=== PATIENT | female | born 1930 | race Caucasian/White ===

== ENCOUNTER 2017-03-05 05:58 | Emergency (ER) | payer OTHER ==
[~2017-03-05] VITALS: Ht 157.5 cm; Wt 70.0 kg
[~2017-03-05 05:58] MED LIST: ALBU1AER INH; AMLO5TAB96 PO; CLOP75 PO; COZA50TA PO; GALA12TA6 PO; IMOD2CHW PO; LEVO.05 PO; LISI-363 PO; MEVA40TA PO; NAME10TA PO; OSEL75 PO; PERI8.6T PO; PROM25TA5 PO; RISP0.252 PO; VITA200017 PO; VITA500S3 PO
[2017-03-05 06:01] VITALS: BP 141/70; PULSE 82; RESP 18; TEMP 98.5; O2SAT 97
[2017-03-05] MEDS ORDERED: ALBUAER3 INH (06:30)
[2017-03-05] MEDS ORDERED: LOPE2TAB3 PO (06:30)
[2017-03-05] MEDS ORDERED: AMLO5TAB2 PO (06:30)
[2017-03-05] MEDS ORDERED: LOVA40TA PO (06:30)
[2017-03-05] MEDS ORDERED: LEVO50TA4 PO (06:30)
[2017-03-05] MEDS ORDERED: RISP0.252 PO (06:30)
[2017-03-05] MEDS ORDERED: VITA10002 PO (06:30)
[2017-03-05] MEDS ORDERED: PLAV75TA29 PO (06:30)
[2017-03-05] MEDS ORDERED: PROM12.54 PO (06:30)
[2017-03-05] MEDS ORDERED: CIPR250T52 PO (06:30)
[2017-03-05] MEDS ORDERED: GALA4TAB PO (06:30)
[2017-03-05] MEDS ORDERED: TYLE325T PO (06:30)
[2017-03-05] MEDS ORDERED: LISI-515 PO (06:30)
[2017-03-05] MEDS ORDERED: PERI8.6T PO (06:30)
[2017-03-05] MEDS ORDERED: CHOL1CHW5 CHEW (06:30)
[2017-03-05] MEDS ORDERED: NAME10TA PO (06:30)
--- NOTE | 2017-03-05 07:03 | PD ---
HPI Chief Complaint: Fall Time Seen by Provider: 06:16 Travel History International Travel<30 days: No Contact w/Intl Traveler<30days: No Traveled to known affect area: No History of Present Illness HPI The patient is an 86 year old female who presents to the [facility] emergency department with a history of reportedly falling prior to arrival at her assisted living facility. The patient reports that she fell forward onto her anterior right knee. The patient reports having right knee pain. She denies having any other pain associated with the fall. She denies hitting her head or losing consciousness. However, according to the record the patient does have a history of dementia. The patient arrives awake and alert. The patient is oriented to person, place, situation, however not time. She denies having any other extremity pain. She denies having chest pain, chest pressure, shortness of breath. She denies having any neck pain, paresthesias, or weakness to her extremities. PFSH Past Medical History Narrative Medical The patient's past medical history is significant for coronary artery disease status post cardiac infarction in 2007, hyperlipidemia, hypertension, spastic colon, acid reflux, arthritis, history of dementia Hx Anticoagulant Therapy: Yes Alzheimer's Disease: Yes Arthritis: Yes Blood Disorders: No Heart Rhythm Problems: No Cancer: Yes (HYSTERECTOMY) Cardiovascular Problems: Yes (HTN) High Cholesterol: Yes Chemotherapy: No Chest Pain: Yes Congestive Heart Failure: No Diabetes: No Diminished Hearing: No Endocrine: No Gastrointestinal Disorders: Yes (SPASTIC COLON) GERD: Yes Genitourinary: No Headaches: Yes Hypertension: Yes Immune Disorder: No Musculoskeletal: No Neurologic: No Psychiatric: No Reproductive: Yes Respiratory: No Immunizations Current: Yes Myocardial Infarction: Yes (2007) Radiation Therapy: No Thyroid Disease: No Tetanus Vaccination: Unknown Influenza Vaccination: No Past Surgical History Narrative Surgical The patient has a past surgical history significant for hysterectomy, cholecystectomy Cholecystectomy: Yes Hysterectomy: Yes Thoracic Surgery: Yes (2 LB TUMOR REMOVED FROM UNDER RIGHT BREAST TO UP AROUND SHOULDER) Other Surgery: Yes Social History Alcohol Use: No Tobacco Use: No Substance Use: No Allergies-Medications (Allergen,Severity, Reaction): Coded Allergies: Lactose (Verified Allergy, Severe, Diarrhea, 03/05/17) Penicillin (Verified Allergy, Severe, UNKNOWN, 03/05/17) Sulfa (Verified Allergy, Severe, UNKNOWN, 03/05/17) Tetanus Toxoid (Verified Allergy, Severe, Rash, 03/05/17) Reported Meds & Prescriptions Reported Meds & Active Scripts Active Reported Vitamin D3 (Cholecalciferol) 2,000 Unit Chew 2,000 Units CHEW DAILY Vitamin B-12 (Cyanocobalamin) 1,000 Mcg Tab 1,000 Mcg PO DAILY Risperidone 0.25 Mg Tab 0.25 Mg PO DAILY Promethazine (Promethazine HCl) 12.5 Mg Tab 25 Mg PO Q6H PRN Proair Hfa 8.5 GM Inh (Albuterol Sulfate) 90 Mcg/Act Aer 2 Puff INH Q4-6H PRN 108 mcg/actuation Plavix (Clopidogrel Bisulfate) 75 Mg Tab 75 Mg PO DAILY Trudi-Colace (Sennosides-Docusate Sodium) 8.6-50 Mg Tab 1 Tab PO BID Namenda (Memantine) 10 Mg Tab 10 Mg PO DAILY Lovastatin 40 Mg Tab 40 Mg PO DAILY Loperamide (Loperamide HCl) 2 Mg Tab 2 Mg PO DIRECTED PRN One tablet after each loose stool. Not to exceed 8 tablets per day. Lisinopril 20 Mg Tab 20 Mg PO DAILY Levothyroxine (Levothyroxine Sodium) 50 Mcg Tab 50 Mcg PO DAILY Galantamine (Galantamine Hydrobromide) 4 Mg Tab 4 Mg PO ONCE Cipro (Ciprofloxacin HCl) 250 Mg Tab 250 Mg PO QID Amlodipine (Amlodipine Besylate) 5 Mg Tab 5 Mg PO DAILY Tylenol (Acetaminophen) 325 Mg Tab 325 Mg PO Q6H PRN Review of Systems Except as stated in HPI: all other systems reviewed are Neg General / Constitutional: No: Fever Eyes: No: Visual changes HENT: No: Headaches Cardiovascular: No: Chest Pain or Discomfort Respiratory: No: Shortness of Breath Gastrointestinal: No: Abdominal Pain Genitourinary: No: Dysuria Musculoskeletal: Positive: Myalgias, Arthralgias, Pain Skin: No Rash Neurologic: No: Weakness, Focal Abnormalities, Coordination Problem, Change in Mentation, Slurred Speech, Sensory Disturbance Psychiatric: No: Depression Endocrine: No: Polydipsia Hematologic/Lymphatic: No: Easy Bruising Physical Exam Narrative General: The patient is a well-developed well-nourished female in no acute distress. She is smiling and interactive. Head and Neck exam: Head is normocephalic atraumatic. No palpable scalp hematoma. No tenderness on palpation of her scalp. Eyes: EOMI, pupils are equal round and reactive to light. Nose: Midline septum with pink mucous membranes Mouth: Dentition unremarkable. Moist mucus membranes. Posterior oropharynx is not erythematous. No tonsillar hypertrophy. Uvula midline. Airway patent. Neck: No palpable lymphadenopathy. No nuchal rigidity. No thyromegaly. No spinous process tenderness on palpation, no step-off or crepitus, no erythema or ecchymosis. The patient has no pain with active range of motion of her neck in flexion and extension and torsion. Cardiovascular: Regular rate and rhythm without murmurs, gallops, or rubs. Lungs: Clear to auscultation bilaterally. No wheezes, rhonchi, or rales. Abdomen: Soft, without tenderness to palpation in all 4 quadrants of the abdomen. No guarding, rebound, or rigidity. Normal bowel sounds are audible. Extremities: No pelvic instability on pelvic rock. No pelvic tenderness on palpation. No clubbing, cyanosis, or edema. 2+ pulses in all 4 extremities. The area of interest is her right knee. The patient reports some tenderness on palpation anteriorly with some erythema and ecchymosis developing. There is a small amount of swelling noted. There is no ligament laxity. The patient has full range of motion with flexion and extension. The patient has no pain with internal and external rotation of the right hip. The patient has 2+ pulses and less than 3 second capillary refill of the digits of the right foot. The patient has intact sensation over all toes. Back: No spinous process tenderness to palpation. No costovertebral angle tenderness to palpation. Neurologic Exam: Cranial nerves 2-12 were intact on exam. Strength is 5/5 in all 4 extremities. No sensory deficits noted. The patient is oriented to person, place, situation , however not time. Data Data Last Documented VS Vital Signs Date Time Temp Pulse Resp B/P Pulse Ox O2 Delivery O2 Flow Rate FiO2 03/05/17 06:01 98.5 82 18 141/70 97 Orders Hip, Uni(Ap&Lat) W Ap Pelvis (03/05/17 06:30) Knee, Complete (4vws) (03/05/17 06:30) Ice/Cold Pack (03/05/17 06:30) MDM Medical Decision Making Medical Screen Exam Complete: Yes Emergency Medical Condition: Yes Medical Record Reviewed: Yes Differential Diagnosis Right knee fracture, versus dislocation, versus internal derangement of the knee , versus hip fracture, versus pelvis fracture, versus contusion, versus patellar fracture Narrative Course During the course of the patients emergency department visit, the patients history, examination, and differential diagnosis were reviewed with the patient. The patient will have a pelvic x-ray, right hip x-ray, right knee x- ray done. The patient had a nice pack applied. The patient's case was checked out to the oncoming emergency physician to disposition after the imaging studies are completed. Diagnosis Primary Impression: Fall Qualified Code: W19.XXXA - Fall, initial encounter Rosa Lara MD Mar 05, 2017 07:03
[2017-03-05 09:00] VITALS: BP 145/72; PULSE 68; RESP 16; O2SAT 96
--- NOTE | 2017-03-05 09:07 | RADRPT ---
EXAM DATE/TIME: 03/05/2017 07:24 [facility] COMPARISON: No previous studies available for comparison. INDICATIONS : Right hip pain, fall. MEDICAL HISTORY : None. SURGICAL HISTORY : None. ENCOUNTER: Initial ACUITY: 1 day PAIN SCORE: 6/10 LOCATION: Right hip FINDINGS: There is mild concentric joint space narrowing in the hips with mild marginal osteophyte formation. N o evidence of fracture or dislocation. There is no displaced pelvic fracture identified. CONCLUSION: No acute bony injury Leandro Mcfarland MD on March 05, 2017 at 9:04 Board Certified Radiologist. This report was verified electronically.
--- NOTE | 2017-03-05 09:33 | RADRPT ---
EXAM DATE/TIME: 03/05/2017 07:19 [facility] COMPARISON: No previous studies available for comparison. INDICATIONS : Right knee pain, fall. MEDICAL HISTORY : None. SURGICAL HISTORY : None. ENCOUNTER: Initial ACUITY: 1 day PAIN SCORE: 9/10 LOCATION: Right knee FINDINGS: Four views of the right knee demonstrate no fracture or dislocation. No joint effusion is present. Th ere is no significant arthropathy and mineralization is mildly decreased. No soft tissue abnormality or radiopaque foreign body is identified. CONCLUSION: No acute right knee abnormality is identified. Leandro Craig MD on March 05, 2017 at 9:30 Board Certified Radiologist. This report was verified electronically.
[2017-03-05] MEDS ORDERED: HYDR-3533 PO (09:40)
--- NOTE | 2017-03-05 09:40 | PD ---
Physical Exam Date Seen by Provider: Mar 05, 2017 Time Seen by Provider: 07:00 Narrative Patient initially seen by Dr. Lara, please see Dr. Lara's note for further details. Signed out to me at 7 AM awaiting x-rays. Patient appears to be well- appearing otherwise. Vital signs are stable. Awake and alert. Following directions. Last 24 hours Impressions Hip and Pelvis X-Ray 03/05/17 0630 Signed Impressions: Service Date/Time: Sunday, March 05, 2017 07:24 - CONCLUSION: No acute bony injury Leandro Mcfarland MD X-rays were done and did not show any signs of acute bony injuries. As per discussion with previous physician, patient will be released with follow-up to primary care physician at facility. Patient may need further help with ambulation and transfers due to fall risk. Return for any worsening in pain or new symptoms as needed. Case is discussed with patient and family and they state understanding. Data Data Last Documented VS Vital Signs Date Time Temp Pulse Resp B/P Pulse Ox O2 Delivery O2 Flow Rate FiO2 03/05/17 06:01 98.5 82 18 141/70 97 Orders Hip, Uni(Ap&Lat) W Ap Pelvis (03/05/17 06:30) Knee, Complete (4vws) (03/05/17 06:30) Ice/Cold Pack (03/05/17 06:30) Electrocardiogram (03/05/17 06:22) MDM Medical Record Reviewed: Yes Supervised Visit with HEIDY: No Diagnosis Primary Impression: Fall Qualified Code: W19.XXXA - Fall, initial encounter Additional Impression: Knee contusion Med/Other Pt SpecificInfo: Prescription(s) given Scripts Hydrocodone-Acetaminophen (Lortab)5-325 Mg Tab1 Tab PO Q6H PRN (PAIN) #10 TAB Ref 0 Prov:Kimmy Houser MD 03/05/17 Disposition: 01 DISCHARGE HOME Condition: Stable Kimmy Houser MD Mar 05, 2017 09:40
[2017-03-05 10:17] VITALS: BP 133/62
--- NOTE | 2017-03-05 11:45 | EKG ---
Date Performed: 03/05/2017 Time Performed: 06:22:30 PTAGE: 86 years EKG: Sinus rhythm WITH SINUS ARRHYTHMIA NORMAL ECG PREVIOUS TRACING : 08/16/2013 11.25 DOCTOR: Clay Lawson Interpretating Date/Time 03/05/2017 11:43:29
== END 2017-03-05 10:21 | disposition home or self-care (01) ==
LOC: NEPE 05:58
DX: S80.01XA Contusion of right knee, initial encounter (principal); I10 Essential (primary) hypertension; W19.XXXA Unspecified fall, initial encounter; Y92.199 Unspecified place in other specified residential institution as the place of occurrence of the external cause
CPT/HCPCS: 73502; 73564; 93005

== ENCOUNTER 2017-09-15 22:55 | Inpatient (IN) | payer OTHER, MEDICARE ==
[~2017-09-15] VITALS: Ht 160 cm; Wt 61.7 kg
[~2017-09-15 22:55] MED LIST changes: -ALBU1AER INH; +ALBUAER3 INH; +AMLO5TAB2 PO; -AMLO5TAB96 PO; +CHOL1CHW5 CHEW; +CIPR250T52 PO; -CLOP75 PO; -COZA50TA PO; -GALA12TA6 PO; +GALA4TAB PO; +HYDR-3533 PO; -IMOD2CHW PO; -LEVO.05 PO; +LEVO50TA4 PO; -LISI-363 PO; +LISI-515 PO; +LOPE2TAB3 PO; +LOVA40TA PO; -MEVA40TA PO; -OSEL75 PO; +PLAV75TA29 PO; +PROM12.54 PO; -PROM25TA5 PO; +TYLE325T PO; +VITA10002 PO; -VITA200017 PO; -VITA500S3 PO
[2017-09-15 23:03] VITALS: BP 123/52; PULSE 91; RESP 18; TEMP 98.5; O2SAT 90
--- NOTE | 2017-09-15 23:13 | PD ---
HPI Chief Complaint: Syncope/Near-Syncope Time Seen by Provider: 23:06 Travel History International Travel<30 days: No Contact w/Intl Traveler<30days: No Traveled to known affect area: No History of Present Illness HPI 87-year-old female with history of Alzheimer's, CAD, [facility] syncopal episode. According to EMS the patient became unresponsive. She was then sat up and shortly after regained consciousness. Here in the emergency department the patient is complaining of generalized malaise. She is awake and alert and oriented to person and place. She is also complaining of chest pain bilaterally and anteriorly which is moderate and described as pressure. She denies abdominal pain or nausea. Mild dyspnea. PFSH Past Medical History Hx Anticoagulant Therapy: Yes Alzheimer's Disease: Yes Arthritis: Yes Blood Disorders: No Heart Rhythm Problems: No Cancer: Yes (HYSTERECTOMY) Cardiovascular Problems: Yes High Cholesterol: Yes Chemotherapy: No Chest Pain: Yes Congestive Heart Failure: No Diabetes: No Diminished Hearing: No Endocrine: No Gastrointestinal Disorders: Yes (SPASTIC COLON) GERD: Yes Genitourinary: No Headaches: Yes Hypertension: Yes Immune Disorder: No Musculoskeletal: No Neurologic: No Psychiatric: No Reproductive: Yes Respiratory: No Immunizations Current: Yes Myocardial Infarction: Yes (2007) Radiation Therapy: No Thyroid Disease: No ?: Not Past Surgical History Cholecystectomy: Yes Hysterectomy: Yes Thoracic Surgery: Yes (2 LB TUMOR REMOVED FROM UNDER RIGHT BREAST TO UP AROUND SHOULDER) Other Surgery: Yes Social History Alcohol Use: No Tobacco Use: No Substance Use: No Allergies-Medications (Allergen,Severity, Reaction): Coded Allergies: Sulfa (Sulfonamide Antibiotics) (Unverified Allergy, Severe, UNKNOWN, ) lactose (Unverified Allergy, Severe, Diarrhea, 09/15/17) penicillin G (Unverified Allergy, Severe, UNKNOWN, 09/15/17) tetanus toxoid, adsorbed (Unverified Allergy, Severe, Rash, 09/15/17) Reported Meds & Prescriptions Reported Meds & Active Scripts Active Reported Vitamin B-12 (Cyanocobalamin) 1,000 Mcg Tab 1,000 Mcg PO DAILY Risperidone 0.25 Mg Tab 0.25 Mg PO DAILY Proair Hfa 8.5 GM Inh (Albuterol Sulfate) 90 Mcg/Act Aer 2 Puff INH Q4-6H PRN 108 mcg/actuation Plavix (Clopidogrel Bisulfate) 75 Mg Tab 75 Mg PO DAILY Trudi-Colace (Sennosides-Docusate Sodium) 8.6-50 Mg Tab 1 Tab PO BID Namenda (Memantine) 10 Mg Tab 10 Mg PO DAILY Lovastatin 40 Mg Tab 40 Mg PO DAILY Lisinopril 20 Mg Tab 20 Mg PO DAILY Levothyroxine (Levothyroxine Sodium) 50 Mcg Tab 50 Mcg PO DAILY Galantamine (Galantamine Hydrobromide) 4 Mg Tab 4 Mg PO ONCE Amlodipine (Amlodipine Besylate) 5 Mg Tab 5 Mg PO DAILY Tylenol (Acetaminophen) 325 Mg Tab 325 Mg PO Q6H PRN Review of Systems Except as stated in HPI: all other systems reviewed are Neg Physical Exam Narrative GENERAL: Well-developed, well-nourished, pleasant, elderly appearing female, awake, alert, no apparent distress. SKIN: Focused skin assessment warm/dry. HEAD: Atraumatic. Normocephalic. EYES: Pupils equal and round. No scleral icterus. No injection or drainage. ENT: Mucous membranes pink and moist. NECK: Trachea midline. No JVD. CARDIOVASCULAR: Regular rate and rhythm. RESPIRATORY: No accessory muscle use. Clear to auscultation. Breath sounds equal bilaterally. GASTROINTESTINAL: Abdomen soft, non-tender, nondistended. MUSCULOSKELETAL: No obvious deformities. No clubbing. No cyanosis. No edema. NEUROLOGICAL: Awake and alert. No obvious cranial nerve deficits. Motor grossly within normal limits. Normal speech. PSYCHIATRIC: Appropriate mood and affect; insight and judgment normal. Data Data Last Documented VS Vital Signs Date Time Temp Pulse Resp B/P (MAP) Pulse Ox O2 Delivery O2 Flow Rate FiO2 09/16/17 00:36 67 18 115/48 (70) 91 Room Air 09/15/17 23:03 98.5 Orders Orders Complete Blood Count With Diff (09/15/17 23:) Ckmb (Isoenzyme) Profile (09/15/17 23:09) Troponin I (09/15/17:) Act Partial Throm Time (Ptt) (09/15/17:) Prothrombin Time / Inr (Pt) (09/15/17 23:09) Urinalysis - C+S If Indicated (09/15/17 23:) Chest, Single Ap (09/15/17 23:09) Ct Brain W/O Iv Contrast(Rout) (09/15/17 23:09) Ecg Monitoring (09/15/17 23:09) Iv Access Insert/Monitor (09/15/17 23:09) Oximetry (09/15/17 23:09) Sodium Chloride 0.9% Flush (Ns Flush) (09/15/17 23:15) Cath For Specimen (09/15/17 23:14) Comprehensive Metabolic Panel (09/16/17 00:10) Ct Pulmonary Angiogram (09/16/17 01:08) Iodixanol 320 Inj (Rad Ct) (Visipaque 32 (09/16/17 02:00) Blood Culture (09/16/17 02:29) Ceftriaxone Inj (Rocephin Inj) (09/16/17 02:30) Azithromycin Inj (Zithromax Inj) (09/16/17 02:30) Labs Laboratory Tests Test 09/16/17 00:10 09/16/17 00:30 White Blood Count 8.1 TH/MM3 Red Blood Count 5.04 MIL/MM3 Hemoglobin 14.9 GM/DL Hematocrit 46.0 % Mean Corpuscular Volume 91.3 FL Mean Corpuscular Hemoglobin 29.5 PG Mean Corpuscular Hemoglobin Concent 32.4 % Red Cell Distribution Width 14.4 % Platelet Count 180 TH/MM3 Mean Platelet Volume 9.2 FL Neutrophils (%) (Auto) 88.9 % Lymphocytes (%) (Auto) 5.9 % Monocytes (%) (Auto) 4.3 % Eosinophils (%) (Auto) 0.1 % Basophils (%) (Auto) 0.8 % Neutrophils # (Auto) 7.2 TH/MM3 Lymphocytes # (Auto) 0.5 TH/MM3 Monocytes # (Auto) 0.3 TH/MM3 Eosinophils # (Auto) 0.0 TH/MM3 Basophils # (Auto) 0.1 TH/MM3 CBC Comment AUTO DIFF Differential Total Cells Counted 100 Neutrophils % (Manual) 77 % Band Neutrophils % 11 % Lymphocytes % 7 % Monocytes % 3 % Eosinophils % 1 % Basophils % 1 % Neutrophils # (Manual) 7.1 TH/MM3 Differential Comment FINAL DIFF MANUAL Platelet Estimate NORMAL Platelet Morphology Comment NORMAL Red Cell Morphology Comment NORMAL Prothrombin Time 10.7 SEC Prothromb Time International Ratio 1.0 RATIO Activated Partial Thromboplast Time 19.9 SEC Blood Urea Nitrogen 21 MG/DL Creatinine 1.10 MG/DL Random Glucose 126 MG/DL Total Protein 7.0 GM/DL Albumin 3.3 GM/DL Calcium Level 8.0 MG/DL Alkaline Phosphatase 62 U/L Aspartate Amino Transf (AST/SGOT) 20 U/L Alanine Aminotransferase (ALT/SGPT) 18 U/L Total Bilirubin 1.0 MG/DL Sodium Level 145 MEQ/L Potassium Level 3.5 MEQ/L Chloride Level 110 MEQ/L Carbon Dioxide Level 24.2 MEQ/L Anion Gap 11 MEQ/L Estimat Glomerular Filtration Rate 47 ML/MIN Total Creatine Kinase 71 U/L Troponin I 0.07 NG/ML Urine Collection Type CATH Urine Color YELLOW Urine Turbidity SLIGHT Urine pH 5.5 Urine Specific [place] 1.005 Urine Protein TRACE mg/dL Urine Glucose (UA) NEG mg/dL Urine Ketones NEG mg/dL Urine Occult Blood NEG Urine Nitrite NEG Urine Bilirubin NEG Urine Leukocyte Esterase NEG Urine WBC 0-2 /hpf Urine Squamous Epithelial Cells 0-5 /hpf Urine Amorphous Sediment MOD Urine Hyaline Casts 20-24 /lpf Urine Coarse Granular Casts 3-5 /lpf Urine Mucus MOD /lpf Microscopic Urinalysis Comment CATH-CULT NOT IND MDM Medical Decision Making Medical Screen Exam Complete: Yes Emergency Medical Condition: Yes Medical Record Reviewed: Yes Interpretation(s) EKG: Sinus, rate 89, normal axis, first-degree AV block, ST depressions in anterior and lateral leads, no ST segment elevations. Differential Diagnosis Syncope, dysrhythmia, metabolic abnormality, ACS, PE, intracranial abnormality, UTI Narrative Course Initial vital signs show heart rate 91, blood pressure 123/52, pulse ox 90% on room air, oral temp of 98.5F. CBC: WBC 8.1, hemoglobin 14.9, hematocrit 46, platelets 180, neutrophils 80.9%. CMP is essentially unremarkable. Troponin is 0.07. UA shows 24 hyaline casts, moderate mucus, not suggestive of UTI. Chest x-ray: Minimal bibasilar patchy densities greater in the left lower lobe. CT head: CONCLUSION: Cerebral atrophy and chronic ischemic small vessel vasculopathy. No acute intracranial abnormalities. CT pulmonary angiogram: CONCLUSION: 1. No evidence for pulmonary embolism. 2. Bibasilar patchy infiltrates. 3. Small hiatal hernia. The patient has a cough in the emergency department that is nonproductive. Blood cultures drawn and she was started on Rocephin and azithromycin. Her EKG is slightly abnormal with ST depressions in the anterior and lateral leads. She is denying chest pain. Her troponin is 0.07. She will be admitted for further treatment and evaluation of syncope, pneumonia, abnormal EKG, elevated troponin. Case discussed with hospitalist Dr. Guajardo who will admit the patient to her service. Diagnosis Primary Impression: Pneumonia Qualified Codes: J18.9 - Pneumonia, unspecified organism Additional Impressions: Syncope Qualified Codes: R55 - Syncope and collapse Abnormal EKG Elevated troponin Admitting Information Admitting Physician Requests: Admit Seth Callahan MD Sep 15, 2017 23:13
[2017-09-15] MEDS ORDERED: SODIUM CHLORIDE 0.9% FLUSH 10 ML FLUSH IVF PRN (23:15)
[2017-09-15 23:17] VITALS: RESP 18; O2SAT 90
--- NOTE | 2017-09-15 23:26 | RADRPT ---
EXAM DATE/TIME: 09/15/2017 23:14 [facility] COMPARISON: CHEST SINGLE AP, December 08, 2015, 13:47. INDICATIONS : Cough. MEDICAL HISTORY : None. SURGICAL HISTORY : None. ENCOUNTER: Initial ACUITY: 1 day PAIN SCORE: 0/10 LOCATION: Bilateral chest FINDINGS: A single view of the chest demonstrates minimal bibasilar patchy densities slightly greater left lowe r lobe. Heart normal in size. The cardiomediastinal contours are unremarkable. Osseous structures ar e intact. CONCLUSION: 1. Minimal bibasilar patchy densities greater in left lower lobe. Farrukh Jensen MD on September 15, 2017 at 23:24 Board Certified Radiologist. This report was verified electronically.
--- NOTE | 2017-09-15 23:44 | RADRPT ---
EXAM DATE/TIME: 09/15/2017 23:21 [facility] COMPARISON: CT BRAIN W/O CONTRAST, November 10, 2012, 18:42. INDICATIONS : Syncope. RADIATION DOSE: 55.92 CTDIvol (mGy) MEDICAL HISTORY : Hypertension. Alzheimer's. SURGICAL HISTORY : None. ENCOUNTER: Initial ACUITY: 1 day PAIN SCALE: 0/10 LOCATION: cranial TECHNIQUE: Multiple contiguous axial images were obtained of the head. Using automated exposure control and adj ustment of the mA and/or kV according to patient size, radiation dose was kept as low as reasonably a chievable to obtain optimal diagnostic quality images. DICOM format image data is available electro nically for review and comparison. FINDINGS: There is marked central and cortical atrophy with dilatation of ventricular and sulcal spaces. Small areas of low-attenuation are seen throughout the white matter. Old lacunar infarct left caudate head. There is no parenchymal hemorrhage, acute infarction or mass lesion identified. There are no extra -axial fluid collections appreciated. The posterior fossa is unremarkable with midline fourth ventri anthony. The portion of the orbits and paranasal sinuses visualized are unremarkable. CONCLUSION: Cerebral atrophy and chronic ischemic small vessel vasculopathy. No acute intracranial abnormalities. Farrukh Jensen MD on September 15, 2017 at 23:38 Board Certified Radiologist. This report was verified electronically.
[2017-09-16] VITALS (13 sets, daily range): BP systolic 96–133; BP diastolic 48–64; PULSE 64–92; RESP 18; TEMP 98.2–100.8; O2SAT 91–96
[2017-09-16 00:27] LABS: AUTOMATED NEUTROPHIL # 7.2 TH/MM3 (1.8-7.7); BASOPHIL # 0.1 TH/MM3 (0-0.2); BASOPHIL % 0.8 % (0.0-2.0); EOSINOPHIL % 0.1 % (0.0-4.0); LYMPH % 5.9 % (9.0-44.0); LYMPHOCYTE # 0.5 TH/MM3 (1.0-4.8); MEAN CELL VOLUME 91.3 FL (80.0-100.0); MEAN CORPUSCULAR HEMOGLOBIN 29.5 PG (27.0-34.0); MEAN CORPUSCULAR HGB CONC 32.4 % (32.0-36.0); MONO % 4.3 % (0.0-8.0); NEUT % 88.9 % (16.0-70.0); PLATELET COUNT 180 TH/MM3 (150-450); RED BLOOD COUNT 5.04 MIL/MM3 (4.00-5.30); RED CELL DISTRIBUTION WIDTH 14.4 % (11.6-17.2); WHITE BLOOD COUNT 8.1 TH/MM3 (4.0-11.0)
[2017-09-16 00:33] LABS: BLOOD, URINE NEG (NEG); GLUCOSE,URINE NEG (NEG); KETONE, URINE NEG (NEG); NITRITE,URINE NEG (NEG); PH, URINE 5.5 (5.0-8.5)
[2017-09-16 00:35] LABS: HEMO FLAGS AUTO DIFF
[2017-09-16 00:49] LABS: APTT (PATIENT) 19.9 SEC (24.3-30.1); PROTHROMBIN TIME - PATIENT 10.7 SEC (9.8-11.6)
[2017-09-16 00:53] LABS: CREATINE KINASE 71 U/L (26-192)
[2017-09-16 01:02] LABS: BICARBONATE 24.2 MEQ/L (21.0-32.0); BLOOD UREA NITROGEN 21 MG/DL (7-18)
[2017-09-16 01:04] LABS: ALT (GPT) 18 U/L (10-53); AST (GOT) 20 U/L (15-37); GLOMERULAR FILTRATION RATE 47 ML/MIN (>89)
[2017-09-16 01:07] LABS: ALKALINE PHOSPHATASE 62 U/L (45-117)
[2017-09-16 01:16] LABS: ANION GAP 11 MEQ/L (5-15); CHLORIDE 110 MEQ/L (98-107); POTASSIUM 3.5 MEQ/L (3.5-5.1); SODIUM (NA) 145 MEQ/L (136-145)
[2017-09-16 01:25] LABS: METHOD OF COLLECTION CATH; URINE COLOR YELLOW (YELLW/STRAW)
[2017-09-16 01:26] LABS: MUCUS URINE MOD /lpf (OCC)
[2017-09-16 01:27] LABS: SQUAMOUS EPITHELIAL CELL URINE 0-5 /hpf (0-5); WBC, URINE 0-2 /hpf (0-5)
[2017-09-16 01:29] LABS: COMMENT (UR) CATH-CULT NOT IND; CULTURE IF INDICATED CATH CULTURE NOT IND
[2017-09-16 01:37] LABS: BANDS 11 % (0-6); BASOPHILS 1 % (0-2); EOSINOPHILS 1 % (0-4); NEUTROPHIL # MANUAL DIFF 7.1 TH/MM3 (1.8-7.7); POLYS (SEG NEUTROPHILS) 77 % (16-70); WBC DIFF SAMPLE 100
[2017-09-16 01:38] LABS: PLATELET ESTIMATE SMEAR NORMAL (NORMAL); PLATELET MORPHOLOGY NORMAL (NORMAL); SCAN/DIFF FINAL DIFF MANUAL
[2017-09-16] MEDS ORDERED: IODIXANOL 320 MG/ML 10 ML VIAL (for Rad CT) IVCONTRAST ONE (02:00)
--- NOTE | 2017-09-16 02:18 | RADRPT ---
EXAM DATE/TIME: 09/16/2017 01:27 [facility] COMPARISON: No previous studies available for comparison. INDICATIONS : Shortness of breath. Evaluate for embolism. IV CONTRAST: 50 cc Visipaque (iodixanol) IV RADIATION DOSE: 10.39 CTDIvol (mGy) MEDICAL HISTORY : Hypertension. Alzheimer's. SURGICAL HISTORY : Cholecystectomy. Tumor removed from right upper chest. ENCOUNTER: Initial ACUITY: 1 day PAIN SCALE: 3/10 LOCATION: chest TECHNIQUE: Volumetric scanning of the chest was performed using a pulmonary embolism protocol MIP images were re constructed. Using automated exposure control and adjustment of the mA and/or kV according to patien t size, radiation dose was kept as low as reasonably achievable to obtain optimal diagnostic quality images. DICOM format image data is available electronically for review and comparison. Follow-up recommendations for detected pulmonary nodules are based at a minimum on nodule size and pa tient risk factors according to Fleischner Society Guidelines. FINDINGS: PULMONARY ARTERIES: No filling defects are seen in the pulmonary arteries through the segmental level. LUNGS: There is patchy infiltrates in the lower lobes. A few scattered nodular densities are seen within the posterior right upper lobe. PLEURAE: There is no pleural thickening or pleural effusion. MEDIASTINUM: There is good visualization of the great vessels of the middle mediastinum. No evidence of mediastin al or hilar adenopathy/mass. MUSCULOSKELETAL: Within normal limits for patient age. MISCELLANEOUS: The visualized upper abdominal organs demonstrate no acute abnormality. Small hiatal hernia. CONCLUSION: 1. No evidence for pulmonary embolism. 2. Bibasilar patchy infiltrates. 3. Small hiatal hernia. Farrukh Jensen MD on September 16, 2017 at 2:15 Board Certified Radiologist. This report was verified electronically.
[2017-09-16] MEDS ORDERED: cefTRIAXone INJ 1,000 MG in SODIUM CHLORIDE 0.9% INJ 100 ML IV ONE (02:30)
[2017-09-16] MEDS ORDERED: AZITHROMYCIN INJ 500 MG in SODIUM CHLOR 0.9% 250 ML INJ 250 ML IV ONE (02:30)
[2017-09-16] MEDS ORDERED: SODIUM CHLORIDE 0.9% FLUSH 10 ML FLUSH IV FLUSH PRN (02:45)
[2017-09-16] MEDS ORDERED: NALOXONE HCL 0.4 MG/ML AMP IV PUSH PRN (02:45)
[2017-09-16] MEDS ORDERED: LEVOFLOXACIN 750 MG PREMIX INJ 150 ML IV SCH (03:00)
[2017-09-16] MEDS: SODIUM CHLORIDE 0.9% FLUSH 10 ML FLUSH IV FLUSH SCH ×2 (08:30→22:17)
--- NOTE | 2017-09-16 11:30 | HHI.HP ---
[facility] Grady Arredondo MD Admission Diagnosis pneumonia, syncope, abnormal EKG, elevated troponin Diagnoses: Travel History International Travel<30 Days: No Contact w/Intl Traveler <30 Da: No Traveled to Known Affected Are: No History of Present Illness This is a pleasant 87 year-old female with past medical history of Alzheimer's dementia, coronary artery disease, irritable bowel syndrome who presented to the ER yesterday after having an episode of unresponsiveness at her assisted living facility. Per the patient she had a lot of diarrhea yesterday, which is not unusual for her due to history of irritable bowel syndrome. She then felt dizzy and lightheaded and had an episode of syncope. The patient denies chest pain or palpitations fever chills cough sore throat nausea vomiting or abdominal pain. Symptoms moderate, no provocative or alleviating factors. Today the patient feels well however is tired and would like to sleep. In the emergency department she was found to have a by basilar pneumonia. CTA lungs was negative for pulmonary embolisms, but did show bibasilar patchy infiltrates. Patient was given Rocephin and Zithromax. Troponin was mildly elevated at 0.7. Initial EKG did show moderate C depression in V2 through V6. Repeat EKG was nonischemic. The patient is followed by Dr. Lara for her coronary artery disease. The patient last had a catheterization in 2007 showing previous stent in the LAD, no angiographic stenosis. Patient is not sure if she has had a stress test since then. Review of Systems Constitutional: DENIES: Fever, Chills Ears, nose, mouth, throat: DENIES: Throat pain, Hoarseness Respiratory: DENIES: Cough, Shortness of breath Cardiovascular: DENIES: Chest pain, Palpitations, Lower Extremity Edema Gastrointestinal: COMPLAINS OF: Diarrhea, DENIES: Abdominal pain, Nausea, Vomiting Genitourinary: DENIES: Urinary frequency, Dysuria Musculoskeletal: DENIES: Back pain, Neck pain Integumentary: DENIES: Pruritus, Rash Hematologic/lymphatic: DENIES: Lymphadenopathy Neurologic: DENIES: Abnormal gait, Headache, Paresthesias Psychiatric: DENIES: Anxiety, Depression Past Family Social History Past Medical History Alzheimer's dementia Hypertension Coronary artery disease status post anterior STEMI in 2007 with stent to LAD Irritable bowel syndrome with chronic diarrhea Chronic kidney disease stage III Hyperlipidemia Hypothyroidism Past Surgical History 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 Cardiac catheterization Reported Medications Allergies Coded Allergies Type Severity Reaction Last Updated Verified Sulfa (Sulfonamide Antibiotics) Allergy Severe UNKNOWN 09/15/17 No lactose Allergy Severe Diarrhea 09/15/17 No penicillin G Allergy Severe UNKNOWN 09/15/17 No tetanus toxoid, adsorbed Allergy Severe Rash 09/15/17 No Active Scripts Medications Dose Route/Sig Max Daily Dose Days Date Category Dose Instructions Vitamin B-12 (Cyanocobalamin) 1,000 Mcg Tab 1,000 Mcg PO DAILY 03/05/17 Reported Risperidone 0.25 Mg Tab 0.25 Mg PO DAILY 03/05/17 Reported Proair Hfa 8.5 GM Inh (Albuterol Sulfate) 90 Mcg/Act Aer 2 Puff INH Q4-6H PRN 03/05/17 Reported 108 mcg/actuation Plavix (Clopidogrel Bisulfate) 75 Mg Tab 75 Mg PO DAILY 03/05/17 Reported Trudi-Colace (Sennosides-Docusate Sodium) 8.6-50 Mg Tab 1 Tab PO BID 03/05/17 Reported Namenda (Memantine) 10 Mg Tab 10 Mg PO DAILY 03/05/17 Reported Lovastatin 40 Mg Tab 40 Mg PO DAILY 03/05/17 Reported Lisinopril 20 Mg Tab 20 Mg PO DAILY 03/05/17 Reported Levothyroxine (Levothyroxine Sodium) 50 Mcg Tab 50 Mcg PO DAILY 03/05/17 Reported Galantamine (Galantamine Hydrobromide) 4 Mg Tab 4 Mg PO ONCE 03/05/17 Reported Amlodipine (Amlodipine Besylate) 5 Mg Tab 5 Mg PO DAILY 03/05/17 Reported Tylenol (Acetaminophen) 325 Mg Tab 325 Mg PO Q6H PRN 03/05/17 Reported Allergies: Coded Allergies: Sulfa (Sulfonamide Antibiotics) (Unverified Allergy, Severe, UNKNOWN, ) lactose (Unverified Allergy, Severe, Diarrhea, 09/15/17) penicillin G (Unverified Allergy, Severe, UNKNOWN, 09/15/17) tetanus toxoid, adsorbed (Unverified Allergy, Severe, Rash, 09/15/17) Family History Reviewed and noncontributory Social History No no alcohol tobacco or drug use Physical Exam Vital Signs Vital Signs Date Time Temp Pulse Resp B/P (MAP) Pulse Ox O2 Delivery O2 Flow Rate FiO2 09/16/17 08:00 99.8 80 18 123/58 (79) 92 09/16/17 07:41 92 Nasal Cannula 2.00 09/16/17 06:00 93 Nasal Cannula 2.00 09/16/17 04:00 100.8 83 18 130/64 (86) 94 09/16/17 03:52 64 18 93 Nasal Cannula 2.00 09/16/17 03:51 64 18 116/60 (78) 93 09/16/17 02:30 66 18 120/64 (82) 94 Nasal Cannula 2.00 09/16/17 00:36 67 18 115/48 (70) 91 Room Air 09/15/17 23:17 18 90 09/15/17 23:11 91 18 90 Room Air 09/15/17 23:03 98.5 91 18 123/52 (75) 90 Physical Exam GENERAL: This is a well-nourished, well-developed elderly female patient, in no apparent distress. SKIN: No rashes, ecchymoses or lesions. Cool and dry. HEAD: Atraumatic. Normocephalic. EYES: Pupils equal round and reactive. Extraocular motions intact. No scleral icterus. No injection or drainage. ENT: hroat without erythema, tonsillar hypertrophy or exudate. Uvula midline. Airway patent. NECK: Trachea midline. No JVD or lymphadenopathy. Supple, nontender, no meningeal signs. CARDIOVASCULAR: Regular rate and rhythm without murmurs, gallops, or rubs. RESPIRATORY: Clear to auscultation. Breath sounds equal bilaterally. No wheezes , rales, or rhonchi. GASTROINTESTINAL: Abdomen soft, non-tender, nondistended. No hepato-splenomegaly , or palpable masses. No guarding. MUSCULOSKELETAL: Extremities without clubbing, cyanosis, or edema. No joint tenderness, effusion, or edema noted. NEUROLOGICAL: Awake and alert. Oriented to self, place, not year. Motor and sensory grossly within normal limits. Normal speech. Laboratory Laboratory Tests Test 09/16/17 00:10 09/16/17 00:30 09/16/17 05:45 White Blood Count 8.1 Red Blood Count 5.04 Hemoglobin 14.9 Hematocrit 46.0 Mean Corpuscular Volume 91.3 Mean Corpuscular Hemoglobin 29.5 Mean Corpuscular Hemoglobin Concent 32.4 Red Cell Distribution Width 14.4 Platelet Count 180 Mean Platelet Volume 9.2 Neutrophils (%) (Auto) 88.9 Lymphocytes (%) (Auto) 5.9 Monocytes (%) (Auto) 4.3 Eosinophils (%) (Auto) 0.1 Basophils (%) (Auto) 0.8 Neutrophils # (Auto) 7.2 Lymphocytes # (Auto) 0.5 Monocytes # (Auto) 0.3 Eosinophils # (Auto) 0.0 Basophils # (Auto) 0.1 CBC Comment AUTO DIFF Differential Total Cells Counted 100 Neutrophils % (Manual) 77 Band Neutrophils % 11 Lymphocytes % 7 Monocytes % 3 Eosinophils % 1 Basophils % 1 Neutrophils # (Manual) 7.1 Differential Comment FINAL DIFF MANUAL Platelet Estimate NORMAL Platelet Morphology Comment NORMAL Red Cell Morphology Comment NORMAL Prothrombin Time 10.7 Prothromb Time International Ratio 1.0 Activated Partial Thromboplast Time 19.9 Blood Urea Nitrogen 21 Creatinine 1.10 Random Glucose 126 Total Protein 7.0 Albumin 3.3 Calcium Level 8.0 Alkaline Phosphatase 62 Aspartate Amino Transf (AST/SGOT) 20 Alanine Aminotransferase (ALT/SGPT) 18 Total Bilirubin 1.0 Sodium Level 145 Potassium Level 3.5 Chloride Level 110 Carbon Dioxide Level 24.2 Anion Gap 11 Estimat Glomerular Filtration Rate 47 Total Creatine Kinase 71 84 Troponin I 0.07 0.07 Urine Collection Type CATH Urine Color YELLOW Urine Turbidity SLIGHT Urine pH 5.5 Urine Specific [place] 1.005 Urine Protein TRACE Urine Glucose (UA) NEG Urine Ketones NEG Urine Occult Blood NEG Urine Nitrite NEG Urine Bilirubin NEG Urine Leukocyte Esterase NEG Urine WBC 0-2 Urine Squamous Epithelial Cells 0-5 Urine Amorphous Sediment MOD Urine Hyaline Casts 20-24 Urine Coarse Granular Casts 3-5 Urine Mucus MOD Microscopic Urinalysis Comment CATH-CULT NOT IND Date/Time Source Procedure Growth Status 09/16/17 02:45 Blood Peripheral Aerobic Blood Culture Pending Received 09/16/17 02:45 Blood Peripheral Anaerobic Blood Culture Pending Received Result Diagram: 09/16/17 0010 09/16/[address] Angiography 09/16/17107 Signed Impressions: Service Date/Time: Saturday, September 16, 2017 01:27 - CONCLUSION: 1. No evidence for pulmonary embolism. 2. Bibasilar patchy infiltrates. 3. Small hiatal hernia. Farrukh Jensen MD Head CT [id number]/15/[id number] Signed Impressions: Service Date/Time: Friday, September 15, 2017 23:21 - CONCLUSION: Cerebral atrophy and chronic ischemic small vessel vasculopathy. No acute intracranial abnormalities. Farrukh Jensen MD Chest X-Ray 09/15/[id number] Signed Impressions: Service Date/Time: Friday, September 15, 2017 23:14 - CONCLUSION: 1. Minimal bibasilar patchy densities greater in left lower lobe. Farrukh Jensen MD Caprinjun VTE Risk Assessment Caprini VTE Risk Assessment: Mod/High Risk (score >= 2) Caprini Risk Assessment Model Point Value = 1 Point Value = 2 Point Value = 3 Point Value = 5 Age 41-60 Minor surgery BMI > 25 kg/m2 Swollen legs Varicose veins or History of unexplained or recurrent spontaneous Oral contraceptives or hormone replacement Sepsis (< 1 month) Serious lung disease, including pneumonia (< 1 month) Abnormal pulmonary function Acute myocardial infarction Congestive heart failure (< 1 month) History of inflammatory bowel disease Medical patient at bed rest Age 61-74 Arthroscopic surgery Major open surgery (> 45 min) Laparoscopic surgery (> 45 min) Malignancy Confined to bed (> 72 hours) Immobilizing plaster cast Central venous access Age >= 75 History of VTE Family history of VTE Factor V Leiden Prothrombin [id number] Lupus anticoagulant Anticardiolipin antibodies Elevated serum homocysteine Heparin-induced thrombocytopenia Other congenital or acquired thrombophilia Stroke (< 1 month) Elective arthroplasty Hip, pelvis, or leg fracture Acute spinal cord injury (< 1 month) Prophylaxis Regimen Total Risk Factor Score Risk Level Prophylaxis Regimen 0-1 Low Early ambulation 2 Moderate Order ONE of the following: *Sequential Compression Device (SCD) *Heparin 5000 units SQ BID 3-4 Higher Order ONE of the following medications: *Heparin 5000 units SQ TID *Enoxaparin/Lovenox 40 mg SQ daily (WT < 150 kg, CrCl > 30 mL/min) *Enoxaparin/Lovenox 30 mg SQ daily (WT < 150 kg, CrCl > 10-29 mL/min) *Enoxaparin/Lovenox 30 mg SQ BID (WT < 150 kg, CrCl > 30 mL/min) AND/OR *Sequential Compression Device (SCD) 5 or more Highest Order ONE of the following medications: *Heparin 5000 units SQ TID (Preferred with Epidurals) *Enoxaparin/Lovenox 40 mg SQ daily (WT < 150 kg, CrCl > 30 mL/min) *Enoxaparin/Lovenox 30 mg SQ daily (WT < 150 kg, CrCl > 10-29 mL/min) *Enoxaparin/Lovenox 30 mg SQ BID (WT < 150 kg, CrCl > 30 mL/min) AND *Sequential Compression Device (SCD) Assessment and Plan Problem List: (1) Syncope ICD Code: R55 - Syncope and collapse Status: Acute (2) Pneumonia ICD Code: J18.9 - Pneumonia, unspecified organism Status: Acute (3) Abnormal EKG ICD Code: R94.31 - Abnormal electrocardiogram [ECG] [EKG] Status: Acute (4) Elevated troponin ICD Code: R74.8 - Abnormal levels of other serum enzymes Status: Acute Assessment and Plan -Syncope, likely vasovagal as the patient had a large amount of diarrhea and was prodromal. Echocardiogram and EEG has been ordered. Monitor on telemetry. -Mild troponin elevation without upward trend, initial EKG was with some ST depression in V2 through V6, resolved on repeat EKG. No report of chest pain. Patient has history of coronary artery disease with last known catheter in 2007 , she has not seen her staking engineer Dr. Lara since 2010. I spoke with Dr. Lara, given the mild elevation of troponin with possible ischemic first EKG we 'll proceed with stress test. If stress test positive would plan to consult Dr. Lara and transfer her to the main [place]. Continue Plavix and lovastatin. -Possible bibasilar pneumonia. Status post Rocephin and Zithromax in the emergency department, will continue Levaquin. Respiratory status stable. -Alzheimer's dementia - continue Risperdal 0.25 mg daily, and Namenda. -Hypertension - continue lisinopril and Norvasc. -Coronary artery disease status post anterior STEMI in 2007 with stent to LAD -Irritable bowel syndrome with chronic diarrhea - hold stool softener. -Chronic kidney disease stage III - stable. -Hypothyroidism - continue Synthroid -DVT prophylaxis with SCDs Problem Qualifiers (1) Syncope: Qualified Codes: R55 - Syncope and collapse (2) Pneumonia: Qualified Codes: J18.9 - Pneumonia, unspecified organism Lacy Peter MD Sep 16, 2017 11:30
--- NOTE | 2017-09-16 15:26 | MG ---
cc: DIXON FARIAS MD, DALIA M.D. Lab No: [id number] Date: 09/16/2017 : 1930 Age: 87 Sex: F Photic stimulation. EEG is awake and drowsy. CT shows atrophy and small vessel disease. Admitted with syncope, unresponsiveness, history of Alzheimer's, diarrhea, on Rocephin and azithromycin. DESCRIPTION OF RECORD The patient has a background of 5 Hz, between 40 and 60 microvolts. There is a lot of movement as well as myogenic artifact. Some mild slowing. No epileptiform features are seen. Photic stimulation with a mild driving response. IMPRESSION Mild slowing, may be due to encephalopathy versus patient's history of dementia. There are no epileptiform features. Clinical correlation. Whitley Mora MD DF/BT /2:48 PM /3:13 PM
--- NOTE | 2017-09-16 16:10 | EKG ---
Date Performed: 09/16/2017 Time Performed: 06:01:40 PTAGE: 87 years EKG: Sinus rhythm NONSPECIFIC T-WAVE ABNORMALITY BORDERLINE ECG Compared to prior tracing no significant change PREVIOUS TRACING : 03/05/2017 06.22 DOCTOR: Gurinder Zaman Interpretating Date/Time 09/16/2017 16:08:33
--- NOTE | 2017-09-16 16:10 | EKG ---
Date Performed: 09/15/2017 Time Performed: 23:04:57 PTAGE: 87 years EKG: Sinus rhythm WITH FIRST DEGREE AV BLOCK MODERATE ST DEPRESSION ABNORMAL ECG Compared to prior tracing no signific ant change PREVIOUS TRACING 03/05/2017 06.22.30 DOCTOR: Gurinder Zaman Interpretating Date/Time 09/16/2017 16:08:25
--- NOTE | 2017-09-16 18:43 | ECHRPT ---
Indication: Shortness of breath CONCLUSIONS The left ventricular systolic function is normal wall thickness is measured at the upper limits of n ormal. No regional wall motion abnormalities are present. with an estimated ejection fraction in the range of 65-70%. Mild thickening of the mitral valve leaflets. Trace mitral valve regurgitation. Moderate mitral annular calcification. ? mild mitral valve stenosis, mean gradient =4 mm hg, peak gradient =10 mm hg Aortic valve sclerosis is present. [id number] aortic valve regurgitation. Mild aortic valve stenosis. Aortic valve area is 1.3 cm. Aortic valve mean gradient is 11 mmHg. There is trace tricuspid valve regurgitation. The estimated pulmonary arterial pressure is 37.7 mmHg. BP: 123 / 58 HR: 79 Rhythm: Sinus MEASUREMENTS (Male / Female) Normal Values Technical Quality:Poor 2D ECHO LV Diastolic Diameter PLAX 3.1 cm 4.2 - 5.9 / 3.9 - 5.3 cm LV Systolic Diameter PLAX 1.7 cm IVS Diastolic Thickness 1.2 cm 0.6 - 1.0 / 0.6 - 0.9 cm LVPW Diastolic Thickness 1.2 cm 0.6 - 1.0 / 0.6 - 0.9 cm LV Relative Wall Thickness 0.8 LVOT Diameter 1.6 cm M-MODE Aortic Root Diameter MM 2.9 cm AV Cusp Separation MM 1.2 cm DOPPLER AV Peak Velocity 228.5 cm/s AV Peak Gradient 20.9 mmHg AV Mean Gradient 11.0 mmHg AV Velocity Time Integral 44.3 cm AI Peak Velocity 349.0 cm/s AI Peak Gradient 48.7 mmHg AI Pressure Half Time 434.0 ms LVOT Peak Velocity 134.0 cm/s LVOT Peak Gradient 7.2 mmHg LVOT Velocity Time Integral 28.4 cm LVOT Cardiac Index 2754.7 cm/minm AV Area Cont Eq vti 1.3 cm AV Area Cont Eq pk 1.2 cm MV Peak Velocity 160.0 cm/s MV Peak Gradient 10.2 mmHg MV Mean Velocity 91.6 cm/s MV Mean Gradient 4.0 mmHg MV Area PHT 2.7 cm Mitral E Point Velocity 128.0 cm/s Mitral A Point Velocity 172.0 cm/s Mitral E to A Ratio 0.7 LV E' Lateral Velocity 4.7 cm/s Mitral E to LV E' Lateral Ratio 27.4 LV E' Septal Velocity 5.1 cm/s Mitral E to LV E' Septal Ratio 25.2 TR Peak Velocity 263.0 cm/s TR Peak Gradient 27.7 mmHg Right Atrial Pressure 10.0 mmHg Pulmonary Artery Systolic Pressu 37.7 mmHg Right Ventricular Systolic Press 37.7 mmHg PV Peak Velocity 95.0 cm/s PV Peak Gradient 3.6 mmHg FINDINGS LEFT VENTRICLE The left ventricular systolic function is normal wall thickness is measured at the upper limits of n ormal. No regional wall motion abnormalities are present. with an estimated ejection fraction in the range of 65-70%. RIGHT VENTRICLE Normal right ventricular size and systolic function. LEFT ATRIUM The left atrial size is normal. RIGHT ATRIUM The right atrial size is normal. ATRIAL SEPTUM Normal atrial septal thickness without atrial level shunting by limited color doppler interrogation. AORTA The aortic root and proximal ascending aorta are normal in size on limited imaging. MITRAL VALVE Mild thickening of the mitral valve leaflets. Trace mitral valve regurgitation. Moderate mitral annular calcification. No mitral valve stenosis. AORTIC VALVE Trileaflet aortic valve. Aortic valve sclerosis is present. [id number] aortic valve regurgitation. Mild aortic valve stenosis. Aortic valve area is 1.3 cm. Aortic valve mean gradient is 11 mmHg. TRICUSPID VALVE Structurally normal tricuspid valve. There is trace tricuspid valve regurgitation. The estimated pulmonary arterial pressure is 37.7 mmHg. PULMONARY VALVE No pulmonary valve regurgitation or stenosis. VESSELS The inferior vena cava is normal in size. PERICARDIUM No pericardial effusion. Gurinder Zaman MD, FACC, [facility] [place] [facility] (Electronically Signed) Final Date:16 September 2017 18:42
--- NOTE | 2017-09-16 22:06 | EKG ---
Date Performed: 09/16/2017 Time Performed: 13:46:34 PTAGE: 87 years EKG: Sinus rhythm NONSPECIFIC T-WAVE ABNORMALITY BORDERLINE ECG PREVIOUS TRACING : 09/16/2017 06.01 Compared to prior tracing no significant change DOCTOR: Ingrid Nelson Interpretating Date/Time 09/16/2017 22:04:40
[2017-09-17] VITALS (9 sets, daily range): BP systolic 110–143; BP diastolic 53–81; PULSE 74–89; RESP 16–24; TEMP 97.3–99.3; O2SAT 91–96
[2017-09-17] MEDS: LEVOTHYROXINE SODIUM 50 MCG TAB PO SCH (06:40)
[2017-09-17 07:40] LABS: AUTOMATED NEUTROPHIL # 4.9 TH/MM3 (1.8-7.7); BASOPHIL % 0.5 % (0.0-2.0); EOSINOPHIL # 0.1 TH/MM3 (0-0.4); EOSINOPHIL % 1.1 % (0.0-4.0); HEMATOCRIT 34.7 % (35.0-46.0); HEMO FLAGS DIFF FINAL; LYMPH % 24.7 % (9.0-44.0); LYMPHOCYTE # 1.8 TH/MM3 (1.0-4.8); MEAN CELL VOLUME 89.8 FL (80.0-100.0); MEAN CORPUSCULAR HEMOGLOBIN 30.2 PG (27.0-34.0); MEAN CORPUSCULAR HGB CONC 33.6 % (32.0-36.0); MONO % 5.6 % (0.0-8.0); NEUT % 68.1 % (16.0-70.0); PLATELET COUNT 148 TH/MM3 (150-450); RED BLOOD COUNT 3.87 MIL/MM3 (4.00-5.30); RED CELL DISTRIBUTION WIDTH 13.9 % (11.6-17.2); WHITE BLOOD COUNT 7.2 TH/MM3 (4.0-11.0)
[2017-09-17 07:52] LABS: POTASSIUM 3.6 MEQ/L (3.5-5.1)
[2017-09-17 07:56] LABS: BICARBONATE 25.3 MEQ/L (21.0-32.0)
[2017-09-17] MEDS ORDERED: LISINOPRIL 20 MG TAB PO SCH (09:00)
[2017-09-17] MEDS ORDERED: amLODIPine BESYLATE 5 MG TAB PO SCH (09:00)
[2017-09-17] MEDS ORDERED: REGADENOSON INJ 0.4 MG/5 ML SYR IV ONE (09:27)
[2017-09-17] MEDS: PRAVASTATIN SOD 40 MG TAB PO SCH (11:02)
[2017-09-17] MEDS: MEMANTINE HCL 10 MG TAB PO SCH (11:03)
[2017-09-17] MEDS: CLOPIDOGREL 75 MG TAB PO SCH (11:03)
[2017-09-17] MEDS: risperiDONE 0.25 MG TAB PO SCH (11:03)
[2017-09-17] MEDS: SODIUM CHLORIDE 0.9% FLUSH 10 ML FLUSH IV FLUSH SCH ×2 (11:06→20:28)
--- NOTE | 2017-09-17 11:48 | RADRPT ---
EXAM DATE/TIME: 09/17/2017 09:07 [place] COMPARISON: No previous studies available for comparison. INDICATIONS : Mid chest pain with syncopal episode. Myocardial infarction. Angina. DOSE: 25.7 mCi Tc99m Myoview at stress. 8.7 mCi Tc99m Myoview at rest. 0.4 mg Lexiscan STRESS SYMPTOMS: Shortness of breath. EJECTION FRACTION: > 70% MEDICAL HISTORY : Cardiovascular disease. Alzheimer's. SURGICAL HISTORY : Hysterectomy. Cholecystectomy. Coronary artery stent. ENCOUNTER: Initial ACUITY: 1 day PAIN SCALE: 5/10 LOCATION: Midsternal chest TECHNIQUE: The patient underwent pharmacologic stress with infusion of prescribed dose. Continuous ECG tracing was monitored during stress. Gated SPECT imaging was performed after stress and conventional SPECT i maging was performed at rest. The examination was performed on a SPECT/CT scanner, both attenuation and non-corrected datasets were reviewed. FINDINGS: DISTRIBUTION: The maximum perfused segment at stress is in the anterolateral and posterior khan. Image sets were n ormalized to the anterolateral wall. PERFUSION STUDY: The pattern of perfusion at shows fixed diminished perfusion in the mid anterior wall down to the per i-apex region. No reversibility to suggest ischemia, however. GATED STUDY: There is intact wall motion and thickening without hypokinetic or dyskinetic segments. CONCLUSION: 1. 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 2. Excellent wall motion throughout with an estimated ejection fraction of greater than 70%. RISK CATEGORY: Low (<1% Annual Mortality Rate) Suleman Ramos MD on September 17, 2017 at 11:44 Board Certified Radiologist. This report was verified electronically.
--- NOTE | 2017-09-17 13:04 | HHI.PR ---
Subjective Remarks Nursing reports no deterioration since last night. Patient was still requiring 2 L of oxygen since last night. Patient herself says she feels "okay". Does not report any fevers nausea or vomiting. Objective Vital Signs Date Time Temp Pulse Resp B/P (MAP) Pulse Ox O2 Delivery O2 Flow Rate FiO2 09/17/17 08:00 97.7 86 18 116/76 (89) 96 09/17/17 07:53 92 Nasal Cannula 2.00 09/17/17 04:00 99.3 80 18 130/81 (97) 92 09/17/17 00:00 98.7 77 18 114/53 (73) 92 09/16/17 20:31 93 Nasal Cannula 2.00 09/16/17 20:15 87 09/16/17 20:00 99.8 77 18 133/57 (82) 93 09/16/17 16:00 98.8 70 18 96/53 (67) 96 I/O 09/16/17 09/16/17 09/16/17 09/17/17 09/17/17 09/17/17 07:00 15:00 23:00 07:00 15:00 23:00 Intake Total 100 ml 250 ml 480 ml 0 ml Balance 100 ml 250 ml 480 ml 0 ml Intake Oral 0 ml 480 ml 0 ml IV Total 100 ml 250 ml # Voids 1 4 5 1 # Bowel Movements 0 Result Diagram: 09/17/1770609/17/17 0707 Objective Remarks Lying in bed, sleeping comfortably Easily aroused Unlabored breathing, inspiratory Bibasilar crackles heard, no cyanosis; has no nasal cannula and nose at the time of my exam A/P Assessment and Plan Hypoxia - Likely secondary to pneumonia, continue Levaquin, wean oxygen as tolerated. Ordering nebupep and incentive spirometry -Syncope, likely vasovagal as the patient had a large amount of diarrhea and was prodromal. Echocardiogram is unremarkable, EEG is also unremarkable with the exception of mild slowing. No recurrence so far, continue PT. did have some borderline low blood pressures yesterday, we'll stop Norvasc, reduce lisinopril dose. -Mild troponin elevation. Stress test is negative. No further workup. -Alzheimer's dementia - continue Risperdal 0.25 mg daily, and Namenda. -Hypertension - see syncope, adjusting meds -Coronary artery disease status post anterior STEMI in 2008 with stent to LAD -Irritable bowel syndrome with chronic diarrhea - monitor -Chronic kidney disease stage III - stable. -Hypothyroidism - continue Synthroid -DVT prophylaxis with SCDs PT recommending rehabilitation placement Avinash Davis MD Sep 17, 2017 13:04
[2017-09-17] MEDS: ENOXAPARIN SODIUM 30 MG/0.3 ML SYRINGE SQ SCH (16:23)
[2017-09-17] MEDS ORDERED: ACETAMINOPHEN 325 MG TAB PO ONE (22:45)
[2017-09-18] VITALS: BP 141/71; PULSE 89; RESP 20; TEMP 98.9; O2SAT 95
[2017-09-18 04:00] VITALS: BP 121/59; PULSE 72; RESP 20; TEMP 98.1; O2SAT 96
[2017-09-18] MEDS: LEVOTHYROXINE SODIUM 50 MCG TAB PO SCH (05:27)
[2017-09-18 08:00] VITALS: BP 126/60; PULSE 63; RESP 16; TEMP 97.6; O2SAT 95
[2017-09-18] MEDS ORDERED: LEVOFLOXACIN 750 MG PREMIX INJ 150 ML IV SCH (08:00)
[2017-09-18] MEDS: MEMANTINE HCL 10 MG TAB PO SCH (08:43)
[2017-09-18] MEDS: risperiDONE 0.25 MG TAB PO SCH (08:43)
[2017-09-18] MEDS: CLOPIDOGREL 75 MG TAB PO SCH (08:43)
[2017-09-18] MEDS: PRAVASTATIN SOD 40 MG TAB PO SCH (08:43)
[2017-09-18] MEDS: SODIUM CHLORIDE 0.9% FLUSH 10 ML FLUSH IV FLUSH SCH (08:44)
[2017-09-18] MEDS ORDERED: LISINOPRIL 5 MG TAB PO SCH (09:00)
[2017-09-18 12:00] VITALS: BP 154/70; PULSE 72; RESP 16; TEMP 98.6; O2SAT 97
[2017-09-18] MEDS: ENOXAPARIN SODIUM 30 MG/0.3 ML SYRINGE SQ SCH (15:00)
[2017-09-18] MEDS ORDERED: LEVA250T14 PO (15:35)
--- NOTE | 2017-09-18 15:36 | HHI.DCPOC ---
Discharge Care Plan Diagnosis: (1) Pneumonia (2) Syncope Goals to Promote Your Health * To prevent worsening of your condition and complications * To maintain your health at the optimal level Directions to Meet Your Goals Take your medications as prescribed Follow your dietary instruction Follow activity as directed Keep your appointments as scheduled Take your immunizations and boosters as scheduled If your symptoms worsen call your PCP, if no PCP go to Urgent Care Center or Emergency Room Smoking is Dangerous to Your Health. Avoid second hand smoke Call the 24-hour hour crisis hotline for domestic abuse at Avinash Davis MD Sep 18, 2017 15:36
[2017-09-18] MEDS ORDERED: AZIT250T3 PO (15:55)
--- NOTE | 2017-09-18 15:56 | HHI.DS ---
Discharge Summary Admission Date Sep 16, 2017 at 02:46 Admitting Diagnosis pneumonia, syncope, abnormal EKG, elevated troponin (1) Syncope ICD Code: R55 - Syncope and collapse Status: Acute (2) Pneumonia ICD Code: J18.9 - Pneumonia, unspecified organism Status: Acute (3) Abnormal EKG ICD Code: R94.31 - Abnormal electrocardiogram [ECG] [EKG] Status: Acute (4) Elevated troponin ICD Code: R74.8 - Abnormal levels of other serum enzymes Status: Acute Brief History - From Admission This is a pleasant 87 year-old female with past medical history of Alzheimer's dementia, coronary artery disease, irritable bowel syndrome who presented to the ER yesterday after having an episode of unresponsiveness at her assisted living facility. Per the patient she had a lot of diarrhea yesterday, which is not unusual for her due to history of irritable bowel syndrome. She then felt dizzy and lightheaded and had an episode of syncope. The patient denies chest pain or palpitations fever chills cough sore throat nausea vomiting or abdominal pain. Symptoms moderate, no provocative or alleviating factors. Today the patient feels well however is tired and would like to sleep. In the emergency department she was found to have a by basilar pneumonia. CTA lungs was negative for pulmonary embolisms, but did show bibasilar patchy infiltrates. Patient was given Rocephin and Zithromax. Troponin was mildly elevated at 0.7. Initial EKG did show moderate C depression in V2 through V6. Repeat EKG was nonischemic. The patient is followed by Dr. Lara for her coronary artery disease. The patient last had a catheterization in 2007 showing previous stent in the LAD, no angiographic stenosis. Patient is not sure if she has had a stress test since then. CBC/BMP: 09/17/17 0707 09/17/17 0707 Significant Findings Laboratory Tests Test 09/16/17 00:10 09/16/17 00:30 09/16/17 05:45 09/16/17 13:37 Neutrophils (%) (Auto) 88.9 % (16.0-70.0) Lymphocytes (%) (Auto) 5.9 % (9.0-44.0) Lymphocytes # (Auto) 0.5 TH/MM3 (1.0-4.8) Neutrophils % (Manual) 77 % (16-70) Band Neutrophils % 11 % (0-6) Lymphocytes % 7 % (9-44) Activated Partial Thromboplast Time 19.9 SEC (24.3-30.1) Blood Urea Nitrogen 21 MG/DL (7-18) Creatinine 1.10 MG/DL (0.50-1.00) Random Glucose 126 MG/DL (74-106) Albumin 3.3 GM/DL (3.4-5.0) Calcium Level 8.0 MG/DL (8.5-10.1) Chloride Level 110 MEQ/L (98-107) Estimat Glomerular Filtration Rate 47 ML/MIN (>89) Troponin I 0.07 NG/ML (0.02-0.05) 0.07 NG/ML (0.02-0.05) Urine Hyaline Casts 20-24 /lpf (RARE) Urine Mucus MOD /lpf (OCC) Test 09/17/17 07:00 09/17/17 07:07 Procalcitonin 1.87 ng/mL (0.00-0.08) Red Blood Count 3.87 MIL/MM3 (4.00-5.30) Hematocrit 34.7 % (35.0-46.0) Platelet Count 148 TH/MM3 (150-450) Blood Urea Nitrogen 22 MG/DL (7-18) Calcium Level 7.5 MG/DL (8.5-10.1) Chloride Level 112 MEQ/L (98-107) Estimat Glomerular Filtration Rate 53 ML/MIN (>89) Pt Condition on Discharge: Stable Discharge Disposition: Discharge to SNF Discharge Instructions DIET: Follow Instructions for: As Tolerated, No Restrictions Activities you can perform: See Additionl Instruction Other Activity Instructions: PER Avinash Grace MD Sep 18, 2017 15:56
[2017-09-18 16:00] VITALS: BP 149/63; PULSE 73; RESP 16; TEMP 98; O2SAT 98
[2017-09-18] MEDS ORDERED: AZITHROMYCIN INJ 500 MG in SODIUM CHLOR 0.9% 250 ML INJ 250 ML IV SCH (16:00)
[2017-09-18] MEDS ORDERED: AZITHROMYCIN 250 MG TAB PO ONE (17:00)
[2017-09-19] MEDS ORDERED: AZITHROMYCIN 250 MG TAB PO SCH (09:00)
== END 2017-09-18 18:40 | DRG 312 ==
LOC: PHED 22:55 → PHEDA 09-16 02:46 → PH3A 09-16 04:03
PROVIDERS: ADMIT Hospitalist; ATTEND Hospitalist
DX: R55 Syncope and collapse (principal); J18.9 Pneumonia, unspecified organism; G30.9 Alzheimer's disease, unspecified; F02.80 Dementia in other diseases classified elsewhere, unspecified severity, without behavioral disturbance, psychotic disturbance, mood disturbance, and anxiety; I12.9 Hypertensive chronic kidney disease with stage 1 through stage 4 chronic kidney disease, or unspecified chronic kidney disease; N18.3 Chronic kidney disease, stage 3 (moderate); K58.0 Irritable bowel syndrome with diarrhea; R09.02 Hypoxemia; R74.8 Abnormal levels of other serum enzymes; E03.9 Hypothyroidism, unspecified; I25.10 Atherosclerotic heart disease of native coronary artery without angina pectoris; I25.2 Old myocardial infarction; Z95.5 Presence of coronary angioplasty implant and graft
CPT/HCPCS: 70450; 71010; 71275; 78452; 80048; 80053; 81001; 82550; 84145; 84484; 85007; 85025; 85027; 85610; 85730; 87040; 93005; 93017; 93306; 94150; 95819; A9502; J0456; J0696; J1650; J1956; J2785; J7050; P9612; Q9967

== ENCOUNTER 2018-01-04 11:04 | Emergency (ER) | payer MEDICARE, OTHER ==
[~2018-01-04 11:04] MED LIST changes: +AZIT250T3 PO; -CHOL1CHW5 CHEW; -CIPR250T52 PO; -HYDR-3533 PO; +LEVA250T14 PO; -LOPE2TAB3 PO; -PROM12.54 PO
[2018-01-04 11:09] VITALS: BP 167/76; PULSE 70; RESP 20; TEMP 99.4; O2SAT 95
--- NOTE | 2018-01-04 11:24 | PD ---
HPI Chief Complaint: Fall Time Seen by Provider: 11:18 Travel History International Travel<30 days: No Contact w/Intl Traveler<30days: No Traveled to known affect area: No History of Present Illness HPI Patient presents via [facility] from [place]. History of severe dementia. Reports a fall last night with left shoulder discomfort. Poor historian. PFSH Past Medical History Hx Anticoagulant Therapy: Yes Alzheimer's Disease: Yes Arthritis: Yes Blood Disorders: No Heart Rhythm Problems: No Cancer: No Cardiovascular Problems: Yes ([place]) High Cholesterol: Yes Chemotherapy: No Chest Pain: Yes Congestive Heart Failure: No Cerebrovascular Accident: No Diabetes: No Diminished Hearing: No Endocrine: No Gastrointestinal Disorders: Yes (SPASTIC COLON) GERD: Yes Genitourinary: No Headaches: Yes Hypertension: Yes Immune Disorder: No Implanted Vascular Access Dvce: No Musculoskeletal: Yes Neurologic: Yes (alzheimer's) Psychiatric: No Reproductive: Yes Respiratory: Yes Immunizations Current: Yes Migraines: No Myocardial Infarction: Yes (2007) Radiation Therapy: No Seizures: No Thyroid Disease: No Menopausal: Yes Past Surgical History Cholecystectomy: Yes Hysterectomy: Yes Thoracic Surgery: Yes (2 LB TUMOR REMOVED FROM UNDER RIGHT BREAST TO UP AROUND SHOULDER) Other Surgery: Yes Social History Alcohol Use: No Tobacco Use: No Substance Use: No Allergies-Medications (Allergen,Severity, Reaction): Coded Allergies: Sulfa (Sulfonamide Antibiotics) (Unverified Allergy, Severe, UNKNOWN, ) lactose (Unverified Allergy, Severe, Diarrhea, 09/15/17) penicillin G (Unverified Allergy, Severe, UNKNOWN, 09/15/17) tetanus toxoid, adsorbed (Unverified Allergy, Severe, Rash, 09/15/17) Reported Meds & Prescriptions Reported Meds & Active Scripts Active Reported Vitamin B-12 (Cyanocobalamin) 1,000 Mcg Tab 1,000 Mcg PO DAILY Risperidone 0.25 Mg Tab 0.25 Mg PO DAILY Proair Hfa 8.5 GM Inh (Albuterol Sulfate) 90 Mcg/Act Aer 2 Puff INH Q4-6H PRN 108 mcg/actuation Plavix (Clopidogrel Bisulfate) 75 Mg Tab 75 Mg PO DAILY Namenda (Memantine) 10 Mg Tab 10 Mg PO DAILY Lovastatin 40 Mg Tab 40 Mg PO DAILY Lisinopril 20 Mg Tab 20 Mg PO DAILY Levothyroxine (Levothyroxine Sodium) 50 Mcg Tab 50 Mcg PO DAILY Galantamine (Galantamine Hydrobromide) 4 Mg Tab 4 Mg PO ONCE Amlodipine (Amlodipine Besylate) 5 Mg Tab 5 Mg PO DAILY Review of Systems General / Constitutional: No: Fever Eyes: No: Visual changes HENT: No: Headaches Cardiovascular: No: Chest Pain or Discomfort Respiratory: No: Shortness of Breath Gastrointestinal: No: Abdominal Pain Genitourinary: No: Dysuria Musculoskeletal: No: Pain Skin: No Rash Neurologic: No: Weakness Psychiatric: No: Depression Endocrine: No: Polydipsia Hematologic/Lymphatic: No: Easy Bruising Physical Exam Narrative GENERAL: Well-nourished, well-developed patient. SKIN: Focused skin assessment warm/dry. HEAD: Normocephalic. Ecchymosis left mid mandible that is tender to touch EYES: No scleral icterus. No injection or drainage. Discomfort with range of motion of the shoulder, no bony deformities NECK: Supple, trachea midline. No JVD or lymphadenopathy. CARDIOVASCULAR: Regular rate and rhythm without murmurs, gallops, or rubs. RESPIRATORY: Breath sounds equal bilaterally. No accessory muscle use. GASTROINTESTINAL: Abdomen soft, non-tender, nondistended. MUSCULOSKELETAL: No cyanosis, or edema. BACK: Nontender without obvious deformity. No CVA tenderness. Data Data Last Documented VS Vital Signs Date Time Temp Pulse Resp B/P (MAP) Pulse Ox O2 Delivery O2 Flow Rate FiO2 01/04/18 11:57 70 20 145/65 (91) 94 01/04/18 11:09 99.4 Orders Orders Shoulder, Limited(2vws) (01/04/18 ) Ct Brain W/O Iv Contrast(Rout) (01/04/18 ) Ct Facial Bones W/O Iv Cont (01/04/18 ) MDM Medical Decision Making Medical Screen Exam Complete: Yes Emergency Medical Condition: Yes Differential Diagnosis Mandible fracture, mandible contusion, left shoulder strain, left humerus fracture Narrative Course Assessment plan discussed the patient at bedside Diagnosis Primary Impression: Left shoulder strain Qualified Codes: S46.912A - Strain of unspecified muscle, fascia and tendon at shoulder and upper arm level, left arm, initial encounter Additional Impression: Contusion of mandibular joint area Qualified Codes: S00.83XA - Contusion of other part of head, initial encounter Patient Instructions: General Instructions Additional Instructions: Tylenol for pain. Encouraged regular cane / walker use. Consider physical therapy for fall risk. Return to the emergency room with any onset of new symptoms. Follow-up with PCP. Med/Other Pt SpecificInfo: No Meds Exist/No RX given Disposition: 01 DISCHARGE HOME Condition: Good Deyvi Lucio MD Jan 04, 2018 11:23
[2018-01-04 11:57] VITALS: BP 145/65; PULSE 70; RESP 20; O2SAT 94
--- NOTE | 2018-01-04 11:58 | RADRPT ---
EXAM DATE/TIME: 01/04/2018 11:27 [facility] COMPARISON: No previous studies available for comparison. INDICATIONS : Fall, left shoulder pain MEDICAL HISTORY : None. SURGICAL HISTORY : None. ENCOUNTER: Initial ACUITY: 1 day PAIN SCORE: 5/10 LOCATION: Left shoulder FINDINGS: Two view examination of the left shoulder demonstrates no evidence of fracture or dislocation. The g lenohumeral and acromioclavicular joints are maintained. Bony mineralization is normal. There is sof t tissue prominence overlying the a.c. joint. CONCLUSION: Soft tissue prominence overlying the a.c. joint. However, the adjacent osseous structures appear inta ct. Macie Smith MD on January 04, 2018 at 11:55 Board Certified Radiologist. This report was verified electronically.
--- NOTE | 2018-01-04 12:01 | RADRPT ---
EXAM DATE/TIME: 01/04/2018 11:37 [facility] COMPARISON: CT BRAIN W/O CONTRAST, September 15, 2017, 23:21. INDICATIONS : Fall, bruising left rami of mandible RADIATION DOSE: 55.44 CTDIvol (mGy) MEDICAL HISTORY : Alzheimer's Cardiovascular disease Hypertension.Osteoporosis SURGICAL HISTORY : Cholecystectomy. Hysterectomy.Chest mass Right. ENCOUNTER: Initial ACUITY: 1 day PAIN SCALE: 4/10 LOCATION: Left cranial TECHNIQUE: Multiple contiguous axial images were obtained of the head. Using automated exposure control and adj ustment of the mA and/or kV according to patient size, radiation dose was kept as low as reasonably a chievable to obtain optimal diagnostic quality images. DICOM format image data is available electro nically for review and comparison. FINDINGS: CEREBRUM: The ventricles are normal for age. No evidence of midline shift, mass lesion, hemorrhage or acute in farction. No extra-axial fluid collections are seen. POSTERIOR FOSSA: The cerebellum and brainstem are intact. The 4th ventricle is midline. The cerebellopontine angle i s unremarkable. EXTRACRANIAL: The visualized portion of the orbits is intact. SKULL: The calvaria is intact. No evidence of skull fracture. There is a small amount of fluid identified w ithin the left sphenoid air cells CONCLUSION: Normal examination for a patient of this age. Small amount of fluid identified within the left sphen oid air cells. Macie Smith MD on January 04, 2018 at 11:57 Board Certified Radiologist. This report was verified electronically.
--- NOTE | 2018-01-04 12:04 | RADRPT ---
EXAM DATE/TIME: 01/04/2018 11:41 [facility] COMPARISON: No previous studies available for comparison. INDICATIONS : Fall, bruising to left rami of mandible. RADIATION DOSE: 29.78 CTDIvol (mGy) MEDICAL HISTORY : Alzheimer's Cardiovascular disease Hypertension.Osteroporosis SURGICAL HISTORY : Cholecystectomy. Hysterectomy.Chest mass right. ENCOUNTER: Initial ACUITY: 1 day PAIN SCORE: 6/10 LOCATION: Left mandible TECHNIQUE: Volumetric scanning of the facial bones was performed. Using automated exposure control and adjustme nt of the mA and/or kV according to patient size, radiation dose was kept as low as reasonably achiev able to obtain optimal diagnostic quality images. DICOM format image data is available electronicall y for review and comparison. FINDINGS: ORBITS: The orbital and infraorbital osseous structures are intact. The retroconal structures have a normal configuration. No radiopaque foreign bodies are seen. NASAL BONE: The nasal bone and maxillary spine are intact ZYGOMATIC ARCHES: Symmetric without evidence of fracture. SINUSES: There is a small air-fluid level identified within the left sphenoid sinus. Mild mucosal thickening i dentified within the right maxillary sinus and within the ethmoid air cells. NASAL CAVITY: The nasal septum is intact and midline. The lacrimal ducts are intact. SOFT TISSUES: No radiopaque foreign bodies seen. No soft-tissue swelling is seen. INTRACRANIAL: No intracranial air seen. CRIBIFORM PLATE: Grossly intact. CONCLUSION: Mild sinus disease. No evidence of fracture. No concerning soft tissue abnormality. Macie Smith MD on January 04, 2018 at 12:00 Board Certified Radiologist. This report was verified electronically.
[2018-01-04 12:51] LABS: BILIRUBIN, URINE NEG (NEG); BLOOD, URINE TRACE (NEG); GLUCOSE,URINE NEG (NEG); KETONE, URINE NEG (NEG); NITRITE,URINE NEG (NEG); PH, URINE 5.5 (5.0-8.5); URINE LEUKOCYTE ESTERASE NEG (NEG)
[2018-01-04 13:06] LABS: URINE COLOR YELLOW (YELLW/STRAW)
[2018-01-04 13:07] LABS: AMORPHOUS SEDIMENT, URINE LARGE; HYALINE CAST, URINE 0-2 /lpf (RARE); MUCUS URINE RARE /lpf (OCC); RBC, URINE 0-3 /hpf (0-3)
== END 2018-01-04 14:51 | disposition home or self-care (01) ==
LOC: PHED 11:04
DX: S46.912A Strain of unspecified muscle, fascia and tendon at shoulder and upper arm level, left arm, initial encounter (principal); S00.83XA Contusion of other part of head, initial encounter; F02.80 Dementia in other diseases classified elsewhere, unspecified severity, without behavioral disturbance, psychotic disturbance, mood disturbance, and anxiety; I25.2 Old myocardial infarction; I10 Essential (primary) hypertension; W19.XXXA Unspecified fall, initial encounter; Y92.129 Unspecified place in nursing home as the place of occurrence of the external cause; Z88.2 Allergy status to sulfonamides; Z88.0 Allergy status to penicillin; Z79.01 Long term (current) use of anticoagulants
CPT/HCPCS: 70450; 70486; 73030; 81001; 99284

== ENCOUNTER 2018-01-08 16:10 | Observation (INO) | payer OTHER ==
[~2018-01-08] VITALS: Ht 152.4 cm; Wt 60.4 kg
[~2018-01-08 16:10] MED LIST changes: -AZIT250T3 PO; -LEVA250T14 PO; -PERI8.6T PO; -TYLE325T PO
[2018-01-08 16:36] VITALS: BP 135/62; PULSE 54; RESP 18; TEMP 98; O2SAT 97
[2018-01-08] MEDS ORDERED: MAPA325T PO (16:49)
[2018-01-08] MEDS ORDERED: PROM25TA10 PO (16:49)
[2018-01-08] MEDS ORDERED: LOPE2CAP PO (16:49)
[2018-01-08] MEDS ORDERED: SENE8.6T PO (16:51)
[2018-01-08] MEDS ORDERED: VITA10002 PO (16:51)
[2018-01-08 17:41] LABS: AUTOMATED NEUTROPHIL # 1.7 TH/MM3 (1.8-7.7); BASOPHIL % 0.6 % (0.0-2.0); EOSINOPHIL # 0.2 TH/MM3 (0-0.4); EOSINOPHIL % 5.9 % (0.0-4.0); HEMATOCRIT 37.6 % (35.0-46.0); HEMOGLOBIN 12.5 GM/DL (11.6-15.3); LYMPH % 43.7 % (9.0-44.0); LYMPHOCYTE # 1.8 TH/MM3 (1.0-4.8); MEAN CELL VOLUME 90.6 FL (80.0-100.0); MEAN CORPUSCULAR HEMOGLOBIN 30.2 PG (27.0-34.0); MEAN CORPUSCULAR HGB CONC 33.4 % (32.0-36.0); MEAN PLATELET VOLUME 9.3 FL (7.0-11.0); MONO % 9.3 % (0.0-8.0); MONOCYTE # 0.4 TH/MM3 (0-0.9); NEUT % 40.5 % (16.0-70.0); PLATELET COUNT 138 TH/MM3 (150-450); RED BLOOD COUNT 4.15 MIL/MM3 (4.00-5.30); RED CELL DISTRIBUTION WIDTH 14.1 % (11.6-17.2); WHITE BLOOD COUNT 4.2 TH/MM3 (4.0-11.0)
[2018-01-08 17:54] LABS: ALBUMIN 2.7 GM/DL (3.4-5.0); AST (GOT) 13 U/L (15-37); BICARBONATE 28.3 MEQ/L (21.0-32.0); BLOOD UREA NITROGEN 22 MG/DL (7-18); CALCIUM 8.2 MG/DL (8.5-10.1); CHLORIDE 109 MEQ/L (98-107); CREATININE 0.94 MG/DL (0.50-1.00); GLOMERULAR FILTRATION RATE 56 ML/MIN (>89); GLUCOSE,RANDOM 116 MG/DL (74-106); SODIUM (NA) 145 MEQ/L (136-145)
[2018-01-08 17:55] LABS: ALT (GPT) 15 U/L (10-53)
--- NOTE | 2018-01-08 17:55 | PD ---
HPI Chief Complaint: Fall Time Seen by Provider: 17:47 Travel History International Travel<30 days: No Contact w/Intl Traveler<30days: No Traveled to known affect area: No History of Present Illness HPI 87-year-old female with history of Alzheimer's disease, CAD, arthritis, presents to emergency department from her [facility] facility following frequent falls. Patient recalls the fall yesterday that was unwitnessed. Patient is uncertain if she was dizzy before the fall or not. It is unknown if she struck her head or lost consciousness. Patient is a poor historian. She reports right elbow pain denies any limitations range of motion alterations in sensation. Patient has no other symptoms reported this time. PFSH Past Medical History Hx Anticoagulant Therapy: Yes Alzheimer's Disease: Yes Arthritis: Yes Blood Disorders: No Heart Rhythm Problems: No Cancer: No Cardiovascular Problems: Yes ([place]) High Cholesterol: Yes Chemotherapy: No Chest Pain: Yes Congestive Heart Failure: No Cerebrovascular Accident: No Diabetes: No Diminished Hearing: No Endocrine: No Gastrointestinal Disorders: Yes (SPASTIC COLON) GERD: Yes Genitourinary: No Headaches: Yes Hypertension: Yes Immune Disorder: No Implanted Vascular Access Dvce: No Musculoskeletal: Yes Neurologic: Yes (alzheimer's) Psychiatric: No Reproductive: Yes Respiratory: Yes Immunizations Current: Yes Migraines: No Myocardial Infarction: Yes (2007) Radiation Therapy: No Seizures: No Thyroid Disease: No ?: Not Menopausal: Yes Past Surgical History Cholecystectomy: Yes Hysterectomy: Yes Thoracic Surgery: Yes (2 LB TUMOR REMOVED FROM UNDER RIGHT BREAST TO UP AROUND SHOULDER) Other Surgery: Yes Social History Alcohol Use: No Tobacco Use: No Substance Use: No Allergies-Medications (Allergen,Severity, Reaction): Coded Allergies: Sulfa (Sulfonamide Antibiotics) (Unverified Allergy, Severe, UNKNOWN, 01/08) lactose (Unverified Allergy, Severe, Diarrhea, 01/08/18) penicillin G (Unverified Allergy, Severe, UNKNOWN, 01/08/18) tetanus toxoid, adsorbed (Unverified Allergy, Severe, Rash, 01/08/18) Reported Meds & Prescriptions Reported Meds & Active Scripts Active Reported Vitamin B-12 (Cyanocobalamin) 1,000 Mcg Tab 500 Mcg PO DAILY Senexon-S 8.6-50 mg (Sennosides-Docusate Sodium) 8.6 Mg-50 Mg Tab 1 Tab PO DAILY Phenergan (Promethazine HCl) 25 Mg Tablet 25 Mg PO Q6H PRN Mapap (Acetaminophen) 325 Mg Tab 650 Mg PO Q4-6H PRN Loperamide (Loperamide HCl) 2 Mg Cap 2 Mg PO Q6HR PRN One capsule after each loose stool. Not to exceed 8 capsules per day. Risperidone 0.25 Mg Tab 0.25 Mg PO DAILY Proair Hfa 8.5 GM Inh (Albuterol Sulfate) 90 Mcg/Act Aer 2 Puff INH Q4-6H PRN 108 mcg/actuation Plavix (Clopidogrel Bisulfate) 75 Mg Tab 75 Mg PO DAILY Namenda (Memantine) 10 Mg Tab 10 Mg PO DAILY Lovastatin 40 Mg Tab 40 Mg PO DAILY Lisinopril 20 Mg Tab 20 Mg PO DAILY Levothyroxine (Levothyroxine Sodium) 50 Mcg Tab 50 Mcg PO DAILY Galantamine (Galantamine Hydrobromide) 4 Mg Tab 4 Mg PO ONCE Amlodipine (Amlodipine Besylate) 5 Mg Tab 5 Mg PO DAILY Review of Systems Except as stated in HPI: all other systems reviewed are Neg Physical Exam Narrative GENERAL: Well-nourished pleasant elderly female patient, sitting in bed in no acute distress. SKIN: Focused skin assessment warm/dry. HEAD: Healing ecchymotic marking on the left mandible/neck area. Abrasion to the right elbow. Normocephalic. EYES: Pupils equal and round. No scleral icterus. No injection or drainage. ENT: No nasal bleeding or discharge. Mucous membranes pink and moist. NECK: Trachea midline. No JVD. CARDIOVASCULAR bradycardic rate and rhythm. RESPIRATORY: No accessory muscle use. Clear to auscultation. Breath sounds equal bilaterally. GASTROINTESTINAL: Abdomen soft, non-tender, nondistended. Hepatic and splenic margins not palpable. MUSCULOSKELETAL: No obvious deformities. No clubbing. No cyanosis. No edema. NEUROLOGICAL: Awake and alert. No obvious cranial nerve deficits. Motor grossly within normal limits. Normal speech. Data Data Last Documented VS Vital Signs Date Time Temp Pulse Resp B/P (MAP) Pulse Ox O2 Delivery O2 Flow Rate FiO2 01/08/18 19:14 (102) 01/08/18 19:12 58 16 98 Room Air 01/08/18 16:36 98.0 Orders Orders Complete Blood Count With Diff (01/08/18 16:30) Comprehensive Metabolic Panel (01/08/18 16:30) Iv Access Insert/Monitor (01/08/18 16:30) Coag Profile (01/08/18 18:03) Electrocardiogram (01/08/18 18:03) Ckmb (Isoenzyme) Profile (01/08/18 18:03) Magnesium (Mg) (01/08/18 18:03) Troponin I (01/08/18 18:) Chest, Single Ap (01/08/18 18:03) Ecg Monitoring (01/08/18 18:03) Bilateral Bp Monitoring (01/08/18 18:) Oximetry (01/08/18 18:) Oxygen Administration (01/08/18 18:) Sodium Chloride 0.9% Flush (Ns Flush) (01/08/18 18:15) Elbow, Complete (4 Vws) (01/08/18 ) Ct Brain W/O Iv Contrast(Rout) (01/08/18 ) Urinalysis - C+S If Indicated (01/08/18 18:55) Cath For Specimen (01/08/18 18:55) Admit Order (Ed Use Only) (01/08/18 20:36) Labs Laboratory Tests Test 01/08/18 16:40 01/08/18 18:14 White Blood Count 4.2 TH/MM3 Red Blood Count 4.15 MIL/MM3 Hemoglobin 12.5 GM/DL Hematocrit 37.6 % Mean Corpuscular Volume 90.6 FL Mean Corpuscular Hemoglobin 30.2 PG Mean Corpuscular Hemoglobin Concent 33.4 % Red Cell Distribution Width 14.1 % Platelet Count 138 TH/MM3 Mean Platelet Volume 9.3 FL Neutrophils (%) (Auto) 40.5 % Lymphocytes (%) (Auto) 43.7 % Monocytes (%) (Auto) 9.3 % Eosinophils (%) (Auto) 5.9 % Basophils (%) (Auto) 0.6 % Neutrophils # (Auto) 1.7 TH/MM3 Lymphocytes # (Auto) 1.8 TH/MM3 Monocytes # (Auto) 0.4 TH/MM3 Eosinophils # (Auto) 0.2 TH/MM3 Basophils # (Auto) 0.0 TH/MM3 CBC Comment DIFF FINAL Differential Comment Prothrombin Time 10.3 SEC Prothromb Time International Ratio 1.0 RATIO Activated Partial Thromboplast Time 24.9 SEC Blood Urea Nitrogen 22 MG/DL Creatinine 0.94 MG/DL Random Glucose 116 MG/DL Total Protein 6.3 GM/DL Albumin 2.7 GM/DL Calcium Level 8.2 MG/DL Alkaline Phosphatase 55 U/L Aspartate Amino Transf (AST/SGOT) 13 U/L Alanine Aminotransferase (ALT/SGPT) 15 U/L Total Bilirubin 0.8 MG/DL Sodium Level 145 MEQ/L Potassium Level 3.5 MEQ/L Chloride Level 109 MEQ/L Carbon Dioxide Level 28.3 MEQ/L Anion Gap 8 MEQ/L Estimat Glomerular Filtration Rate 56 ML/MIN Magnesium Level 2.1 MG/DL Total Creatine Kinase 80 U/L Troponin I 0.07 NG/ML Urine Color YELLOW Urine Turbidity CLEAR Urine pH 5.5 Urine Specific [place] 1.029 Urine Protein TRACE mg/dL Urine Glucose (UA) NEG mg/dL Urine Ketones NEG mg/dL Urine Occult Blood NEG Urine Nitrite NEG Urine Bilirubin NEG Urine Urobilinogen LESS THAN 2.0 MG/DL Urine Leukocyte Esterase NEG Urine RBC 1 /hpf Urine WBC 2 /hpf Urine Squamous Epithelial Cells 1 /hpf Microscopic Urinalysis Comment CATH-CULT NOT IND MDM Medical Decision Making Medical Screen Exam Complete: Yes Emergency Medical Condition: Yes Medical Record Reviewed: Yes Differential Diagnosis Electrolyte abnormality versus UTI versus intracranial hemorrhage versus minor head injury versus fracture versus sprain versus contusion Narrative Course 87-year-old female presents emergency department following multiple falls, last known yesterday that was unwitnessed. Patient appears without distress. She is pleasantly confused but is able to move all extremities. She has no obvious deformities. Last Impressions Chest X-Ray 01/08/18 180 Signed Impressions: Service Date/Time: December 18:18 - CONCLUSION: 1. Minimal subsegmental opacity most characteristic of atelectasis. No pneumothorax or effusion. John Perez MD Head CT 01/08/18 0000 Signed Impressions: Service Date/Time: December 18:58 - CONCLUSION: 1. Chronic ischemic changes in the periventricular white matter and stable ventricular prominence since January 04. No acute intracranial abnormality. Trace fluid left sphenoid. John Perez MD Elbow X-Ray 01/08/18 0000 Signed Impressions: Service Date/Time: December 18:22 - CONCLUSION: 1. No acute findings. John Perez MD Laboratory Tests Test 01/08/18 16:40 01/08/18 18:14 White Blood Count 4.2 TH/MM3 Red Blood Count 4.15 MIL/MM3 Hemoglobin 12.5 GM/DL Hematocrit 37.6 % Mean Corpuscular Volume 90.6 FL Mean Corpuscular Hemoglobin 30.2 PG Mean Corpuscular Hemoglobin Concent 33.4 % Red Cell Distribution Width 14.1 % Platelet Count 138 TH/MM3 Mean Platelet Volume 9.3 FL Neutrophils (%) (Auto) 40.5 % Lymphocytes (%) (Auto) 43.7 % Monocytes (%) (Auto) 9.3 % Eosinophils (%) (Auto) 5.9 % Basophils (%) (Auto) 0.6 % Neutrophils # (Auto) 1.7 TH/MM3 Lymphocytes # (Auto) 1.8 TH/MM3 Monocytes # (Auto) 0.4 TH/MM3 Eosinophils # (Auto) 0.2 TH/MM3 Basophils # (Auto) 0.0 TH/MM3 CBC Comment DIFF FINAL Differential Comment Prothrombin Time 10.3 SEC Prothromb Time International Ratio 1.0 RATIO Activated Partial Thromboplast Time 24.9 SEC Blood Urea Nitrogen 22 MG/DL Creatinine 0.94 MG/DL Random Glucose 116 MG/DL Total Protein 6.3 GM/DL Albumin 2.7 GM/DL Calcium Level 8.2 MG/DL Alkaline Phosphatase 55 U/L Aspartate Amino Transf (AST/SGOT) 13 U/L Alanine Aminotransferase (ALT/SGPT) 15 U/L Total Bilirubin 0.8 MG/DL Sodium Level 145 MEQ/L Potassium Level 3.5 MEQ/L Chloride Level 109 MEQ/L Carbon Dioxide Level 28.3 MEQ/L Anion Gap 8 MEQ/L Estimat Glomerular Filtration Rate 56 ML/MIN Magnesium Level 2.1 MG/DL Total Creatine Kinase 80 U/L Troponin I 0.07 NG/ML Urine Color YELLOW Urine Turbidity CLEAR Urine pH 5.5 Urine Specific [place] 1.029 Urine Protein TRACE mg/dL Urine Glucose (UA) NEG mg/dL Urine Ketones NEG mg/dL Urine Occult Blood NEG Urine Nitrite NEG Urine Bilirubin NEG Urine Urobilinogen LESS THAN 2.0 MG/DL Urine Leukocyte Esterase NEG Urine RBC 1 /hpf Urine WBC 2 /hpf Urine Squamous Epithelial Cells 1 /hpf Microscopic Urinalysis Comment CATH-CULT NOT IND CBC and BMP are without acute concern. Troponin is elevated at 0.07. In review of the records, patient has had elevated troponin in the past but it did trend downward. She is denying any chest pain or tightness. I discussed the patient with my attending physician. We will admit her observation to ensure this is not trending upward. I discussed the patient with Dr. Guajardo, patient will be admitted observation to [facility]. Diagnosis Primary Impression: Fall Qualified Codes: W19.XXXA - Unspecified fall, initial encounter Additional Impression: Elevated troponin Admitting Information Admitting Physician Requests: Observation Condition: Stable Josselin Power Jan 08, 2018 17:55
[2018-01-08 18:06] LABS: ALKALINE PHOSPHATASE 55 U/L (45-117); TOTAL BILIRUBIN ADULT 0.8 MG/DL (0.2-1.0); TOTAL PROTEIN 6.3 GM/DL (6.4-8.2)
[2018-01-08] MEDS ORDERED: SODIUM CHLORIDE 0.9% FLUSH 10 ML FLUSH IVF PRN (18:15)
--- NOTE | 2018-01-08 18:47 | RADRPT ---
EXAM DATE/TIME: 01/08/2018 18:22 [facility] COMPARISON: No previous studies available for comparison. INDICATIONS : Right elbow pain after fall. MEDICAL HISTORY : None. SURGICAL HISTORY : None. ENCOUNTER: Initial ACUITY: 1 day PAIN SCORE: 10/10 LOCATION: Right elbow, posterior. FINDINGS: Multiple view examination of the right elbow demonstrates no soft tissue swelling, joint effusion, or fracture. The osseous structures are in normal alignment. Bony mineralization is normal. CONCLUSION: 1. No acute findings. John Perez MD on January 08, 2018 at 18:44 Board Certified Radiologist. This report was verified electronically.
--- NOTE | 2018-01-08 18:51 | RADRPT ---
EXAM DATE/TIME: 01/08/2018 18:18 [facility] COMPARISON: CHEST SINGLE AP, September 15, 2017, 23:14. INDICATIONS : Chest pain after fall. MEDICAL HISTORY : None. SURGICAL HISTORY : None. ENCOUNTER: Initial ACUITY: 1 day PAIN SCORE: 10/10 LOCATION: Bilateral chest FINDINGS: A single view of the chest demonstrates subsegmental airspace disease the right lung base. Left lung clear. No effusion. No pneumothorax. Mild cardiomegaly. CONCLUSION: 1. Minimal subsegmental opacity most characteristic of atelectasis. No pneumothorax or effusion. John Perez MD on January 08, 2018 at 18:46 Board Certified Radiologist. This report was verified electronically.
[2018-01-08 18:59] LABS: MAGNESIUM 2.1 MG/DL (1.5-2.5)
[2018-01-08 19:02] LABS: TROPONIN I 0.07 NG/ML (0.02-0.05)
[2018-01-08 19:10] VITALS: RESP 17; O2SAT 97
[2018-01-08 19:11] VITALS: BP 178/76; PULSE 60; RESP 17; O2SAT 97
[2018-01-08 19:12] VITALS: BP 162/72; PULSE 58; RESP 16; O2SAT 98
--- NOTE | 2018-01-08 19:18 | PD ---
Physical Exam Date Seen by Provider: Jan 08, 2018 Time Seen by Provider: 18:00 Narrative I, Dr. Houser, have reviewed the advance practice practitioner's documentation and am in agreement, met with the patient face to face, made the diagnosis, and the medical decision making was done by me. *My assessment and Findings: Patient seen and evaluated with level, please see mid-level note for further details. She apparently has had several falls over the course of the week. She is pleasantly demented. She has abrasions to her right arm. Otherwise does not appear to have any other major injuries. Laboratory Tests Test 01/08/18 16:40 Platelet Count 138 TH/MM3 (150-450) Monocytes (%) (Auto) 9.3 % (0.0-8.0) Eosinophils (%) (Auto) 5.9 % (0.0-4.0) Neutrophils # (Auto) 1.7 TH/MM3 (1.8-7.7) Blood Urea Nitrogen 22 MG/DL (7-18) Random Glucose 116 MG/DL (74-106) Total Protein 6.3 GM/DL (6.4-8.2) Albumin 2.7 GM/DL (3.4-5.0) Calcium Level 8.2 MG/DL (8.5-10.1) Aspartate Amino Transf (AST/SGOT) 13 U/L (15-37) Chloride Level 109 MEQ/L (98-107) Estimat Glomerular Filtration Rate 56 ML/MIN (>89) Last 24 hours Impressions Chest X-Ray 01/08/18 1803 Signed Impressions: Service Date/Time: December 18:18 - CONCLUSION: 1. Minimal subsegmental opacity most characteristic of atelectasis. No pneumothorax or effusion. John Perez MD Elbow X-Ray 01/08/18 0000 Signed Impressions: Service Date/Time: December 18:22 - CONCLUSION: 1. No acute findings. John Perez MD CAT scan is pending of the patient. Lab work was ordered for further evaluation. Disposition based on workup. Data Data Last Documented VS Vital Signs Date Time Temp Pulse Resp B/P (MAP) Pulse Ox O2 Delivery O2 Flow Rate FiO2 01/08/18 19:14 (102) 01/08/18 19:12 58 16 98 Room Air 01/08/18 16:36 98.0 Orders Orders Complete Blood Count With Diff (01/08/18 16:30) Comprehensive Metabolic Panel (01/08/18 16:30) Iv Access Insert/Monitor (01/08/18 16:30) Coag Profile (01/08/18 18:03) Electrocardiogram (01/08/18 18:03) Ckmb (Isoenzyme) Profile (01/08/18 18:03) Magnesium (Mg) (01/08/18 18:03) Troponin I (01/08/18 18:03) Chest, Single Ap (01/08/18 18:03) Ecg Monitoring (01/08/18 18:03) Bilateral Bp Monitoring (01/08/18 18:) Oximetry (01/08/18 18:) Oxygen Administration (01/08/18 18:) Sodium Chloride 0.9% Flush (Ns Flush) (01/08/18 18:15) Elbow, Complete (4 Vws) (01/08/18 ) Ct Brain W/O Iv Contrast(Rout) (01/08/18 ) Urinalysis - C+S If Indicated (01/08/18 18:55) Cath For Specimen (01/08/18 18:55) Labs Laboratory Tests Test 01/08/18 16:40 White Blood Count 4.2 TH/MM3 Red Blood Count 4.15 MIL/MM3 Hemoglobin 12.5 GM/DL Hematocrit 37.6 % Mean Corpuscular Volume 90.6 FL Mean Corpuscular Hemoglobin 30.2 PG Mean Corpuscular Hemoglobin Concent 33.4 % Red Cell Distribution Width 14.1 % Platelet Count 138 TH/MM3 Mean Platelet Volume 9.3 FL Neutrophils (%) (Auto) 40.5 % Lymphocytes (%) (Auto) 43.7 % Monocytes (%) (Auto) 9.3 % Eosinophils (%) (Auto) 5.9 % Basophils (%) (Auto) 0.6 % Neutrophils # (Auto) 1.7 TH/MM3 Lymphocytes # (Auto) 1.8 TH/MM3 Monocytes # (Auto) 0.4 TH/MM3 Eosinophils # (Auto) 0.2 TH/MM3 Basophils # (Auto) 0.0 TH/MM3 CBC Comment DIFF FINAL Differential Comment Blood Urea Nitrogen 22 MG/DL Creatinine 0.94 MG/DL Random Glucose 116 MG/DL Total Protein 6.3 GM/DL Albumin 2.7 GM/DL Calcium Level 8.2 MG/DL Alkaline Phosphatase 55 U/L Aspartate Amino Transf (AST/SGOT) 13 U/L Alanine Aminotransferase (ALT/SGPT) 15 U/L Total Bilirubin 0.8 MG/DL Sodium Level 145 MEQ/L Potassium Level 3.5 MEQ/L Chloride Level 109 MEQ/L Carbon Dioxide Level 28.3 MEQ/L Anion Gap 8 MEQ/L Estimat Glomerular Filtration Rate 56 ML/MIN Magnesium Level 2.1 MG/DL [facility] Medical Record Reviewed: Yes Supervised Visit with HEIDY: Yes Diagnosis Primary Impression: Fall Condition: Stable Kimmy Houser MD Jan 08, 2018 19:18
--- NOTE | 2018-01-08 19:22 | RADRPT ---
EXAM DATE/TIME: 01/08/2018 18:58 [place] COMPARISON: CT BRAIN W/O CONTRAST, January 04, 2018, 11:37. INDICATIONS : Frequent fall RADIATION DOSE: 34.07 CTDIvol (mGy) MEDICAL HISTORY : Alzheimer's Cardiovascular disease Hypertension. SURGICAL HISTORY : Hysterectomy. ENCOUNTER: Initial ACUITY: 1 day PAIN SCALE: 0/10 LOCATION: cranial TECHNIQUE: Multiple contiguous axial images were obtained of the head. Using automated exposure control and adj ustment of the mA and/or kV according to patient size, radiation dose was kept as low as reasonably a chievable to obtain optimal diagnostic quality images. DICOM format image data is available electro nically for review and comparison. FINDINGS: CEREBRUM: The ventricles are normal for age. No evidence of midline shift, mass lesion, hemorrhage or acute in farction. Chronic white matter ischemic changes. No extra-axial fluid collections are seen. POSTERIOR FOSSA: The cerebellum and brainstem are intact. The 4th ventricle is midline. The cerebellopontine angle i s unremarkable. EXTRACRANIAL: The visualized portion of the orbits is intact. Trace fluid left sphenoid. SKULL: The calvaria is intact. No evidence of skull fracture. CONCLUSION: 1. Chronic ischemic changes in the periventricular white matter and stable ventricular prominence sin ce January 04. No acute intracranial abnormality. Trace fluid left sphenoid. John Perez MD on January 08, 2018 at 19:18 Board Certified Radiologist. This report was verified electronically.
[2018-01-08 19:29] LABS: BILIRUBIN, URINE NEG (NEG); BLOOD, URINE NEG (NEG); GLUCOSE,URINE NEG (NEG); KETONE, URINE NEG (NEG); NITRITE,URINE NEG (NEG); PH, URINE 5.5 (5.0-8.5); SQUAMOUS EPITHELIAL CELL URINE 1 /hpf (0-5); URINE COLOR YELLOW (YELLW/STRAW); URINE LEUKOCYTE ESTERASE NEG (NEG)
[2018-01-08 20:22] LABS: PROTHROMBIN TIME - PATIENT 10.3 SEC (9.8-11.6)
[2018-01-08] MEDS ORDERED: NALOXONE HCL 0.4 MG/ML AMP IV PUSH PRN (20:45)
[2018-01-08] MEDS ORDERED: SODIUM CHLORIDE 0.9% FLUSH 10 ML FLUSH IV FLUSH PRN (20:45)
--- NOTE | 2018-01-08 21:25 | HHI.HP ---
[facility] Grady Arredondo MD Admission Diagnosis ? Syncope; elevated troponin Diagnoses: Chief Complaint: Fall, dizziness Travel History International Travel<30 Days: No Contact w/Intl Traveler <30 Da: No Traveled to Known Affected Are: No History of Present Illness 87-year-old female with a history of hypertension, hypothyroid, CAD, hyperlipidemia and Alzheimer's disease was brought into the ED from her [facility] after suffering a fall. Due to patient's history of Alzheimer's ROS is limited and patient only remembers certain things about her medical conditions. Records were sent from her LONG TER[facility] and reviewed. Patient states she has been falling a lot, she states when she gets up she becomes dizzy and falls. She is unsure if she has any loss of consciousness, but denies hitting her head. She denies any pain, no chest pain or shortness of breath. Upon evaluation in the emergency room patient was found to have an elevated troponin 0.07, patient does deny any chest pain. 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 Not to exceed 8 capsules per day. Risperidone 0.25 Mg Tab 0.25 Mg PO DAILY Proair Hfa 8.5 GM Inh (Albuterol Sulfate) 90 Mcg/Act Aer 2 Puff INH Q4-6H PRN 108 mcg/actuation Plavix (Clopidogrel Bisulfate) 75 Mg Tab 75 Mg PO DAILY Namenda (Memantine) 10 Mg Tab 10 Mg PO DAILY Lovastatin 40 Mg Tab 40 Mg PO DAILY Lisinopril 20 Mg Tab 20 Mg PO DAILY Levothyroxine (Levothyroxine Sodium) 50 Mcg Tab 50 Mcg PO DAILY Galantamine (Galantamine Hydrobromide) 4 Mg Tab 4 Mg PO ONCE Amlodipine (Amlodipine Besylate) 5 Mg Tab 5 Mg PO DAILY Allergies: Coded Allergies: Sulfa (Sulfonamide Antibiotics) (Unverified Allergy, Severe, UNKNOWN, 01/08) lactose (Unverified Allergy, Severe, Diarrhea, 01/08/18) penicillin G (Unverified Allergy, Severe, UNKNOWN, 01/08/18) tetanus toxoid, adsorbed (Unverified Allergy, Severe, Rash, 01/08/18) Active Ordered Medications Current Medications Medications (Trade) Dose Ordered Sig/Shweta Route Start Time Stop Time Status Last Admin (NS Flush) 2 ml UNSCH PRN IV FLUSH 01/08/18 20:45 (NS Flush) 2 ml BID IV FLUSH 01/08/18 21:00 (Narcan Inj) 0.4 mg UNSCH PRN IV PUSH 01/08/18 20:45 Family History Mom: DM Dad: Heart disease Social History Patient denies any tobacco, alcohol or illicit drug use. Physical Exam Vital Signs Vital Signs Date Time Temp Pulse Resp B/P (MAP) Pulse Ox O2 Delivery O2 Flow Rate FiO2 01/08/18 19:14 (102) 01/08/18 19:12 58 16 162/72 (102) 98 Room Air 01/08/18 19:11 60 17 178/76 (110) 97 Room Air 01/08/18 19:10 97 Room Air 01/08/18 19:10 17 97 Room Air 01/08/18 16:36 98.0 54 18 135/62 (86) 97 Physical Exam GENERAL: This is a well-nourished, well-developed patient, in no apparent distress. SKIN: Left lower chin ecchymotic. HEAD: Atraumatic. Normocephalic. EYES: Pupils equal round and reactive. ENT: Nose without bleeding, purulent drainage or septal hematoma. Airway patent. NECK: Trachea midline. No JVD or lymphadenopathy. CARDIOVASCULAR: Regular rate and rhythm without murmurs, gallops, or rubs. RESPIRATORY: Clear to auscultation. Breath sounds equal bilaterally. No wheezes , rales, or rhonchi. GASTROINTESTINAL: Abdomen soft, non-tender, nondistended. MUSCULOSKELETAL: +1 bilateral lower extremity edema, nonpitting. NEUROLOGICAL: Awake and alert to self and at times place. Motor and sensory grossly within normal limits. Normal speech. Laboratory Laboratory Tests Test 01/08/18 16:40 01/08/18 18:14 White Blood Count 4.2 Red Blood Count 4.15 Hemoglobin 12.5 Hematocrit 37.6 Mean Corpuscular Volume 90.6 Mean Corpuscular Hemoglobin 30.2 Mean Corpuscular Hemoglobin Concent 33.4 Red Cell Distribution Width 14.1 Platelet Count 138 Mean Platelet Volume 9.3 Neutrophils (%) (Auto) 40.5 Lymphocytes (%) (Auto) 43.7 Monocytes (%) (Auto) 9.3 Eosinophils (%) (Auto) 5.9 Basophils (%) (Auto) 0.6 Neutrophils # (Auto) 1.7 Lymphocytes # (Auto) 1.8 Monocytes # (Auto) 0.4 Eosinophils # (Auto) 0.2 Basophils # (Auto) 0.0 CBC Comment DIFF FINAL Differential Comment Prothrombin Time 10.3 Prothromb Time International Ratio 1.0 Activated Partial Thromboplast Time 24.9 Blood Urea Nitrogen 22 Creatinine 0.94 Random Glucose 116 Total Protein 6.3 Albumin 2.7 Calcium Level 8.2 Alkaline Phosphatase 55 Aspartate Amino Transf (AST/SGOT) 13 Alanine Aminotransferase (ALT/SGPT) 15 Total Bilirubin 0.8 Sodium Level 145 Potassium Level 3.5 Chloride Level 109 Carbon Dioxide Level 28.3 Anion Gap 8 Estimat Glomerular Filtration Rate 56 Magnesium Level 2.1 Total Creatine Kinase 80 Troponin I 0.07 Urine Color YELLOW Urine Turbidity CLEAR Urine pH 5.5 Urine Specific [place] 1.029 Urine Protein TRACE Urine Glucose (UA) NEG Urine Ketones NEG Urine Occult Blood NEG Urine Nitrite NEG Urine Bilirubin NEG Urine Urobilinogen LESS THAN 2.0 Urine Leukocyte Esterase NEG Urine RBC 1 Urine WBC 2 Urine Squamous Epithelial Cells 1 Microscopic Urinalysis Comment CATH-CULT NOT IND Result Diagram: 01/08/18 1640 01/08/18 1640 Imaging Last Impressions Chest X-Ray 01/08/18 180 Signed Impressions: Service Date/Time: December 18:18 - CONCLUSION: 1. Minimal subsegmental opacity most characteristic of atelectasis. No pneumothorax or effusion. John Perez MD Head CT 01/08/18 0000 Signed Impressions: Service Date/Time: December 18:58 - CONCLUSION: 1. Chronic ischemic changes in the periventricular white matter and stable ventricular prominence since January 04. No acute intracranial abnormality. Trace fluid left sphenoid. John Perez MD Elbow X-Ray 01/08/18 0000 Signed Impressions: Service Date/Time: December 18:22 - CONCLUSION: 1. No acute findings. John Perez MD Caprini VTE Risk Assessment Caprini VTE Risk Assessment: Mod/High Risk (score >= 2) Caprini Risk Assessment Model Point Value = 1 Point Value = 2 Point Value = 3 Point Value = 5 Age 41-60 Minor surgery BMI > 25 kg/m2 Swollen legs Varicose veins or History of unexplained or recurrent spontaneous Oral contraceptives or hormone replacement Sepsis (< 1 month) Serious lung disease, including pneumonia (< 1 month) Abnormal pulmonary function Acute myocardial infarction Congestive heart failure (< 1 month) History of inflammatory bowel disease Medical patient at bed rest Age 61-74 Arthroscopic surgery Major open surgery (> 45 min) Laparoscopic surgery (> 45 min) Malignancy Confined to bed (> 72 hours) Immobilizing plaster cast Central venous access Age >= 75 History of VTE Family history of VTE Factor V Leiden Prothrombin [id number] Lupus anticoagulant Anticardiolipin antibodies Elevated serum homocysteine Heparin-induced thrombocytopenia Other congenital or acquired thrombophilia Stroke (< 1 month) Elective arthroplasty Hip, pelvis, or leg fracture Acute spinal cord injury (< 1 month) Prophylaxis Regimen Total Risk Factor Score Risk Level Prophylaxis Regimen 0-1 Low Early ambulation 2 Moderate Order ONE of the following: *Sequential Compression Device (SCD) *Heparin 5000 units SQ BID 3-4 Higher Order ONE of the following medications: *Heparin 5000 units SQ TID *Enoxaparin/Lovenox 40 mg SQ daily (WT < 150 kg, CrCl > 30 mL/min) *Enoxaparin/Lovenox 30 mg SQ daily (WT < 150 kg, CrCl > 10-29 mL/min) *Enoxaparin/Lovenox 30 mg SQ BID (WT < 150 kg, CrCl > 30 mL/min) AND/OR *Sequential Compression Device (SCD) 5 or more Highest Order ONE of the following medications: *Heparin 5000 units SQ TID (Preferred with Epidurals) *Enoxaparin/Lovenox 40 mg SQ daily (WT < 150 kg, CrCl > 30 mL/min) *Enoxaparin/Lovenox 30 mg SQ daily (WT < 150 kg, CrCl > 10-29 mL/min) *Enoxaparin/Lovenox 30 mg SQ BID (WT < 150 kg, CrCl > 30 mL/min) AND *Sequential Compression Device (SCD) Assessment and Plan Problem List: (1) Dizziness ICD Code: R42 - Dizziness and giddiness (2) Near syncope ICD Code: R55 - Syncope and collapse (3) Elevated troponin ICD Code: R74.8 - Abnormal levels of other serum enzymes Status: Acute Assessment and Plan 87-year-old female with a history of hypertension, CAD, hypothyroid, hyperlipidemia and Alzheimer's disease was brought into the ED from her [facility] after suffering a fall. Near syncope, with dizziness, and result patient falls -Orthostatic vital signs ordered -FABIEN hose ordered -PT eval and treat -US carotids ordered -Echo completed in August 2017 showed aortic stenosis with mild regurgitation, EF 65-70%, systolic function normal Elevated troponin, troponin 0.07, patient's baseline from prior visits, will rule out ACS EKG reviewed and shows sinus rhythm -Serial troponin and EKGs -Monitor telemetry -Resumed home Plavix Hypertension, chronic -Reorder home medications, monitor vitals Alzheimer's, chronic -Resumed home medications DVT prophylaxis: Heparin SQ Discussed Condition With Patient, RN and the ED physician Angelica Bucio Jan 08, 2018 21:25
[2018-01-08 22:27] VITALS: BP_SYST 183; BP_SYST 184; BP_SYST 187; BP_DIAS 83; BP_DIAS 89; BP_DIAS 94; PULSE 67; RESP 20; TEMP 98.7; O2SAT 96
[2018-01-08] MEDS ORDERED: cloNIDine HCL 0.1 MG TAB PO ONE (22:45)
[2018-01-08] MEDS: HEPARIN SODIUM - SQ 10,000 UNITS/ML VIAL SQ SCH (23:05)
[2018-01-08] MEDS: SODIUM CHLORIDE 0.9% FLUSH 10 ML FLUSH IV FLUSH SCH (23:05)
[2018-01-08 23:32] VITALS: PULSE 64
[2018-01-09] VITALS (11 sets, daily range): BP systolic 128–148; BP diastolic 64–74; PULSE 48–77; RESP 16–20; TEMP 97.9–98.5; O2SAT 96–98
[2018-01-09 00:50] LABS: TROPONIN I 0.07 NG/ML (0.02-0.05)
[2018-01-09 03:53] LABS: TROPONIN I 0.07 NG/ML (0.02-0.05)
[2018-01-09] MEDS: LEVOTHYROXINE SODIUM 50 MCG TAB PO SCH (06:01)
[2018-01-09 07:05] LABS: AUTOMATED NEUTROPHIL # 1.9 TH/MM3 (1.8-7.7); BASOPHIL % 0.5 % (0.0-2.0); EOSINOPHIL # 0.3 TH/MM3 (0-0.4); EOSINOPHIL % 6.2 % (0.0-4.0); HEMATOCRIT 37.3 % (35.0-46.0); HEMOGLOBIN 12.5 GM/DL (11.6-15.3); LYMPH % 48.5 % (9.0-44.0); LYMPHOCYTE # 2.4 TH/MM3 (1.0-4.8); MEAN CELL VOLUME 90.6 FL (80.0-100.0); MEAN CORPUSCULAR HEMOGLOBIN 30.4 PG (27.0-34.0); MEAN CORPUSCULAR HGB CONC 33.6 % (32.0-36.0); MEAN PLATELET VOLUME 9.2 FL (7.0-11.0); MONO % 7.2 % (0.0-8.0); MONOCYTE # 0.4 TH/MM3 (0-0.9); NEUT % 37.6 % (16.0-70.0); PLATELET COUNT 137 TH/MM3 (150-450); RED BLOOD COUNT 4.11 MIL/MM3 (4.00-5.30); RED CELL DISTRIBUTION WIDTH 13.8 % (11.6-17.2); WHITE BLOOD COUNT 4.9 TH/MM3 (4.0-11.0)
[2018-01-09 07:30] LABS: BICARBONATE 27.8 MEQ/L (21.0-32.0); CALCIUM 8.3 MG/DL (8.5-10.1); CREATININE 0.91 MG/DL (0.50-1.00)
[2018-01-09] MEDS ORDERED: CHLORHEXIDINE GLUCONATE 2 % 1 PACK (2 CLOTHS) TOP SCH (08:00)
[2018-01-09] MEDS ORDERED: POVIDONE IODINE 5% (ANTISEPSIS KIT) 4 APPLICATIONS EACH NARE SCH (08:00)
[2018-01-09] MEDS ORDERED: MUPIROCIN 2% OINT 1 APPLIC/GM SYR NASAL SCH (08:00)
[2018-01-09] MEDS ORDERED: VANCOMYCIN INJ 1,000 MG in SODIUM CHLOR 0.9% 250 ML INJ 250 ML IV SCH (08:00)
--- NOTE | 2018-01-09 08:35 | MB ---
cc: RAMA GARCIA M.D. DATE OF CONSULTATION 01/08/2018 REASON FOR CONSULTATION Evaluation of bradycardia and pauses with syncope. HISTORY OF PRESENT ILLNESS This is an 87-year-old woman previously known to me. I have not seen her for a number of years. She has dementia and has been living in a senior living. She has a prior cardiac history of an anterior ST-segment elevation RI September 07, 2008. She had a drug-eluting stent in her LAD on September 07, 2008. Her last cath was September 30, 2008 and her LAD stent was widely patent. She has hyperlipidemia and hypertension in the past. She has not been on any medications to slow her heart rate. She has been living in an [facility]. Apparently she has been falling a lot and when she gets up, she becomes dizzy and falls. It is unclear whether she has loss of consciousness and really has a very limited history I can obtain from the patient due to her dementia. She has never noted to be markedly bradycardic and has had some pauses. PAST MEDICAL HISTORY Includes: 1. Hypertension 2. Hyperlipidemia 3. Hypothyroidism 4. Alzheimer's disease 5. Coronary disease as described above. PAST SURGICAL HISTORY 1. Cholecystectomy 2. Hysterectomy 3. Tonsillectomy 4. Previous cath procedures MEDICATIONS 1. Lisinopril 20 mg 2. Levothyroxine 3. Amlodipine 5 mg 4. Lovastatin 40 mg 5. Namenda 6. Loperamide 7. Acetaminophen 8. Promethazine ALLERGIES INCLUDE SULFA, LACTOSE, PENICILLIN, AND TETANUS. FAMILY HISTORY Positive for heart disease. SOCIAL HISTORY Nonsmoker, nondrinker. PHYSICAL EXAM Physical exam reveals a pleasant elderly female. She is calm. She is awake, but not able to provide much history. HEENT: Notable for ecchymosis on her left lower chin. NECK: Shows no JVD, no bruits. CHEST: Clear to auscultation. CARDIAC: S1-S2, bradycardic. There is a 1/6 systolic murmur. No gallops. ABDOMEN: Soft and nontender. EXTREMITIES: Reveal trace edema. LABORATORY Work up so far shows a hematocrit of 37.3, creatinine 0.91. Troponins are flat at 0.07. Head CT shows chronic ischemic changes. Chest x-ray shows minimal atelectasis and no signs of pneumonia. Telemetry shows a multiple bouts of bradycardia down to 40 beats per minute with 2-second pauses. IMPRESSION Symptomatic bradycardia with multiple bouts of syncope. She has had pauses and its likely these are cardiac in origin and recommendations is a dual-chamber pacemaker to try to get informed consent from family members because of the patient's Alzheimer's. If that can be done, we will try to go ahead and get that put in this morning. MD KENDRA Paul/ANALIA /7:48 AM /8:14 AM
[2018-01-09] MEDS: MEMANTINE HCL 10 MG TAB PO SCH (09:00)
[2018-01-09] MEDS: amLODIPine BESYLATE 5 MG TAB PO SCH (09:00)
[2018-01-09] MEDS: risperiDONE 0.25 MG TAB PO SCH (09:00)
[2018-01-09] MEDS: LISINOPRIL 20 MG TAB PO SCH (09:00)
[2018-01-09] MEDS: PRAVASTATIN SOD 40 MG TAB PO SCH (09:00)
[2018-01-09] MEDS: CLOPIDOGREL 75 MG TAB PO SCH (09:00)
[2018-01-09] MEDS: SODIUM CHLORIDE 0.9% FLUSH 10 ML FLUSH IV FLUSH SCH ×2 (09:00→20:37)
[2018-01-09] MEDS: HEPARIN SODIUM - SQ 10,000 UNITS/ML VIAL SQ SCH ×2 (09:00→20:59)
[2018-01-09] MEDS ORDERED: LIDOCAINE HCL 2% 50 ML VIAL ONE (09:45)
[2018-01-09] MEDS ORDERED: VANCOMYCIN HCL 1000 MG VIAL ONE (09:45)
[2018-01-09] MEDS ORDERED: ceFAZolin INJ 1,000 MG VIAL ONE ×2 (09:45→09:47)
[2018-01-09] MEDS ORDERED: SODIUM CHLOR 0.9% 250 ML INJ 250 ML ONE (09:46)
[2018-01-09] MEDS ORDERED: VANCOMYCIN 500 MG VIAL ONE (09:48)
[2018-01-09] MEDS ORDERED: PROPOFOL 200 MG/20 ML AMP ONE (10:37)
--- NOTE | 2018-01-09 11:15 | CATHPROC ---
Patient Name: BREA CHRISTINE Study #: [id number] Initial MD: Buzz Lara Date of : 1930 Study Date: 01/09/2018 Cardiac Catheterization Report 01/09/2018 11:15:41 AM Financial #: [id number] 1 of 9 Patient Name: BREA CHRISTINE Study #: [id number] Initial MD: Buzz Lara Date of : 1930 Study Date: 01/09/2018 Entire Case Report Patient Information Patient Name BREA CHRISTINE Date of 1930 Age 87 years Financial # [id number] Gender F AlternateID Lab Number 6 Room Number G82 Height (in) 60.0 Height (cm) 152.4 BSA 1.55 Weight (lbs) 129.8 Weight (kg) 59.0 Patient Address/Phone Number Home Address [facility] Home Phone Number [phone] [facility] [id number] [facility] Study Information Study Number Admission Scheduled Start Study Start [id number] Jan 08 2018 8:38PM 01/09/2018 Jan 09 2018 8:01AM [place] [facility] Cardiac Pacer/ICD Admit Source Facility Department Emergency department [facility] Physician and Clinical Staff Initial Buzz Shelby Assembly Machine Operator Skip Drake RT(R) Assembly Machine Operator Amber Wilkes RT(R) TECH2 Other Anesthesia, SCIENCE CONSULTANT Recorder Lizzie Martinez RN Scrub Skip Drake RT(R) Procedures Performed Procedure Lead Insertion 01/09/2018 11:15:41 AM Financial #: [id number] 2 of 9 Patient Name: BREA CHRISTINE Study #: [id number] Initial MD: Buzz Lara Date of : 1930 Study Date: 01/09/2018 Equipment Time Embosser Apprentice Description Size Mfg Part Number Used/Scraped [id number] 08:02 [employer] SUTURE, STRIP PLUS 1/2" * Used *[id number] 08:02 MEDLINE PACER ADHESIVE, MASTISOL 2/3CC 2/3CC 0523-48 Used 08:02 MEDLINE PACER CADENA, LIMB * 2530 *[id number] Used [id number] 08:02 MEDLINE PACER PACK, PACER CUSTOM * Used *[id number] 08:02 MEDLINE PACER PEN, SKIN DUAL W/ RULER * Used *[id number] 10:08 [employer] PACER SAFE SHEATH, FR7, 13CM FR 7 CLS-1007 Used 10:08 [employer] PACER SAFE SHEATH, FR7, 13CM FR 7 CLS-1007 Used 10:00 Needle Sponge Count 2 22 Used 10:02 Needle Sponge Count 25 1 Used 10:01 Needle Sponge Count 5 5 Used [id number] *[id number] SUTURE, 2-0 VICRYL [SH] ([id number]) SUTURE, 3-0 VICRYL [SH] ([id number]) SUTURE, 4-0 MONOCRYL [PS2] (Y496G) [id number] 08:02 [employer],WARM AIR CCL * Used *[id number] [facility] PAD, ELECTROSURGICAL 08:02 * [id number] *[id number] Used SURGICAL GROUNDING ORANGE LEAD, CAPSURE FIX NOVUS, 4076-45CM 10:28 VIT[employer]RON [employer] 45CM Used 45CM *[id number] LEAD, CAPSURE FIX NOVUS, 4076-52CM 10:27 [employer] 52CM Used 52CM *[id number] ADDRS1 10:37 [employer] PACEMAKER, ADAPTA S DDDR Used *[id number] 1762-2303 08:02 [employer] PURA. / * Used *20111 Equipment Model, Serial, Lot Number and Expiration Data Description Model Number Serial Number Lot Number Expiration Date LEAD, CAPSURE FIX NOVUS, 45CM 4076-45 [id number] 11-08-2019 LEAD, CAPSURE FIX NOVUS, 52CM 4076-52 [id number] 09-17-2019 PACEMAKER, ADAPTA S addrs1 [id number] 03-21-2019 01/09/2018 11:15:41 AM Financial #: [id number] 3 of Patient Name: BREA CHRISTINE Study #: [id number] Initial MD: Buzz Lara Date of : 1930 Study Date: 01/09/2018 Insurance Information Insurance Payor Private Health Insurance Third Green Party Third Green Party Number [facility] History: Allergies Allergy Reaction Sulfa (Sulfonamide Antibiotics) UNKNOWN lactose Diarrhea tetanus toxoid, adsorbed Rash penicillin G UNKNOWN Labs Hgb (g/dl) Hct (%) RBC (MIL/MM3) WBC (l/cumm) Platelets (thousands) 11.60-17.00 35.00-51.00 4.00-5.90 4.00-11.00 150.00-450.00 12.0 37 4.1 4.9 137 Glucose (mg/dl) BUN (mg/dl) Creatinine (mg/dl) BUN:Creatinine (1:x) 74.00-106.00 7.00-18.00 0.50-1.30 10.00-20.00 83 18 0.9 20 Na (meq/l) K (meq/l) 136.00-145.00 3.50-5.10 144 3.8 INR (PTT:PT) 0.90-1.10 1 Medication Medication Total Dose (Bolus/Oral) Medication Total Dosage/Unit 2% XYLOCAINE 50 mL Medications (Bolus/Oral) Medication Time Given Dosage/Unit Administered By Reason 2% XYLOCAINE 01/09/2018 10:15:53 AM 50 mL Buzz Lara 50 mL 2% XYLOCAINE given in lab by Buzz Lara in Left upper chest via Subcutaneous. 01/09/2018 11:15:41 AM Financial #: [id number] 4 of 9 Patient Name: BREA CHRISTINE Study #: [id number] Initial MD: Buzz Lara Date of : 1930 Study Date: 01/09/2018 Medication (Drip) Medication Time Given Dosage/Unit Concentration/Unit Diluent (ml) Solution VANCOMYCIN DRIP 01/09/2018 9:56:51 AM 1 g 1 g VANCOMYCIN DRIP given in lab by Nuria, SCIENCE CONSULTANT via Peripheral IV. Ordered by Buzz Lara. [place] son: As per physicians verbal order. Initial Case Assessment Cardiovascular HR Rhythm NIBP Chest Pain 53 1avb 142/64 0 Edema Present Skin color Skin None Normal Warm Dry Circulatory - Right Pulses Radial 1 Scale (0,1,2,3,4,d) Circulatory - Left Pulses Radial 1 Scale (0,1,2,3,4,d) Circulatory - Lower Extremities Color Lower Right Color Lower Left Normal Normal Neurological State Oriented to time-place- Alert Moves all extremities person Respiration - General Respiration Rate SpO2 (%) (B/min) 18 94 01/09/2018 11:15:41 AM Financial #: [id number] 5 of 9 Patient Name: BREA CHRISTINE Study #: [id number] Initial MD: Buzz Lara Date of : 1930 Study Date: 01/09/2018 Final Case Assessment Cardiovascular HR Rhythm NIBP 82 AP 111/62 Edema Present Skin color Skin None Normal Warm Dry Circulatory - Right Pulses Radial 1 Scale (0,1,2,3,4,d) Circulatory - Left Pulses Radial 1 Scale (0,1,2,3,4,d) Circulatory - Lower Extremities Color Lower Right Color Lower Left Normal Normal Neurological State Lethargic Moves all extremities Respiration - General Respiration Rate SpO2 (%) (B/min) 16 94 Chronological Log Time Study Chronological Log 9:30:08 Patient arrived via Bed. 9:30:11 Patient Name, D.O.B, / Armband Verified By R.N. 9:30:13 Consent signed by the physician and the patient and verified by the [facility] staff. 9:30:15 Pre-op and post- op instructions given; patient acknowledges understanding of instructions. 9:30:17 Verbal Stimulation=2 Physical Stimulation=2 Airway=2 Respiration=2 TOTAL=8. (0=absent, 1=li mited, 2=present) 9:30:24 Patient has been NPO for More than 6Hrs. 9:30:27 Skin Breakdown- right armw red wound near wist and elbow wrapped w kerlix 9:31:20 Anesthesia at bedside. Assumes care of patient. 9:31:54 Patient Warmer Placed on the Table. 01/09/2018 11:15:41 AM Financial #: [id number] 6 of 9 Patient Name: BREA CHRISTINE Study #: [id number] Initial MD: Buzz Lara Date of : 1930 Study Date: 01/09/2018 9:32:00 Disposable Defibrillator Pads Placed On Patient. 9:32:04 Steve Prominences Protected 9:33:08 A # 20 IV was noted in the Antecubital (right). Grade = 0 0.9ns kvo 9:33:13 A # 20 IV was noted in the Forearm (left). Grade = 0 0.9ns kvo 9:33:17 History and physical on the chart or being dictated. 9:36:00 2% CHLORHEXIDINE GLUCONATE WASH AND NASAL SWIPE DONE PRIOR TO PROCEDURE. Assessment: Initial Case, HR=53 BPM, Rhythm=1avb, PLWS=867/64 mmhg, Chest Pain=0, Edema=None, Color=Normal, Skin = Warm, Dry Right Pulses: Radial=1 Left Pulses: Radial=1 9:39:14 Lower Right Extremities: Color=Normal Lower Left Extremities: Color=Normal Neurological: State=Alert, Ox3, BUTCHER Respiration: Resp=18 B/min, SpO2=94 % 9:39:18 Bovie ground pad applied to: right thigh 9:40:54 Table restraints applied according to hospital policy 1 g VANCOMYCIN DRIP given in lab by Anesthesia, SCIENCE CONSULTANT via Peripheral IV. Ordered by Nurys Lara Reason: As per 9:56:51 physicians verbal order. 9:59:38 Upper Chest Prepped Times Two. First Sponge And Instrument Count Done by Skip Drake, RT(R). 9:59:59 Hypo's: 5, Sponges: 25, Bovie/scratch: 2 Sutures: 5, Blades: 2, Instruments: 25, Syveck Patches: 0 10:00:24 Reference ECG taken 10:03:30 paged Time Out. Correct patient, procedure, procedure equipment, site and side verified with physicia n present. Time 10:15:00 concurred by MD, individual staff and SCIENCE CONSULTANT. Time Out #2 - Consents verified, patient in correct position, all results are labled and displa yed, safety precautions 10:15:30 taken, antibiotics administered. Time out concurred by , individual staff and SCIENCE CONSULTANT in procedu re 10:15:51 Case Start 10:15:53 50 mL 2% XYLOCAINE given in lab by Buzz Lara in Left upper chest via Subcutaneous. 10:20:40 Vascular access was obtained in the Subclav. Vein (Lft. 10:20:46 Wire inserted 10:22:30 Vascular access was obtained in the Subclav. Vein (Lft. 10:22:35 Wire inserted 10:23:26 Surgical Incision Made. 10:24:34 A pocket was created at the L Upper Chest. 10:26:13 A SAFE SHEATH, FR7, 13CM FR 7 was advanced into the Subclav. Vein (Lft using the Modified S eldinger technique. 10:26:26 A LEAD, CAPSURE FIX NOVUS, 52CM 52CM was inserted and positioned in the RV. 10:26:42 Lead placement verified under fluoroscopy 10:26:48 The RV lead impedance and threshold being tested. 10:27:20 The RV lead was sutured to the fascia. 10:27:44 A SAFE SHEATH, FR7, 13CM FR 7 was advanced into the Subclav. Vein (Lft using the Modified S eldinger technique. 01/09/2018 11:15:41 AM Financial #: [id number] Patient Name: BREA CHRISTINE Study #: [id number] Initial MD: Buzz Lara Date of : 1930 Study Date: 01/09/2018 10:27:54 A LEAD, CAPSURE FIX NOVUS, 45CM 45CM was inserted and positioned in the RA. 10:28:22 Lead placement verified under fluoroscopy 10:29:01 The Atrial lead impedance and threshold is being tested. 10:33:10 The Atrial lead was sutured to the fascia. 10:44:51 DOCU called. Spoke to Osito re: pt to go to [facility] or [facility] 10:45:43 Pocket flushed with antibiotic solution 10:46:20 A PACEMAKER, ADAPTA S DDDR was connected and placed in the pocket. Second Sponge And Instrument Count Done by Buzz Lara. 10:53:45 Hypo's: 5, Sponges: 25, Bovie/scratch: 2 Sutures: 5, Blades: 2, Instruments:, Syveck Patches: 11:00:34 Implant Procedure was performed. 11:00:43 A PPM Implant . (Dual) 11:00:55 Implantable Device card placed in patient's chart. 11:10:00 The pocket was closed. Final Sponge And Instrument Count Done by Skip Drake RT(R). 11:11:00 Hypo's: 5, Sponges: 25, Bovie/scratch: 2 Sutures: 5, Blades: 2, Instruments: 25, Syveck Patches: 0 11:12:42 Case End 11:13:11 DOCU called. Spoke to Osito 11:13:26 Steri-strips and a sterile dressing applied to site. 11:13:50 No case complications noted. 11:13:51 Cine recording checked. 11:13:55 Bedside Report will be given. 11:13:57 Defibrillator and ground pads removed. Skin intact. Assessment: Final Case, HR=82 BPM, Rhythm=AP, OJGF=511/62 mmhg, Edema=None, Color=Normal, Skin = Warm, Dry Right Pulses: Radial=1 Left Pulses: Radial=1 11:14:15 Lower Right Extremities: Color=Normal Lower Left Extremities: Color=Normal Neurological: State=Lethargic, BUTCHER Respiration: Resp=16 B/min, SpO2=94 % 11:23:32 A sling was placed on the affected arm. 11:24:00 Patient moved to stretcher End Study - Contrast Media Used In Study Contrast Total Opened (mL) Total Used (mL) Total Wasted (mL) Unspecified 0 0 0 01/09/2018 11:15:41 AM Financial #: [id number] 8 of 9 Patient Name: BREA CHRISTINE Study #: [id number] Initial MD: Buzz Lara Date of : 1930 Study Date: 01/09/2018 End Study - Maximum Contrast Load Max Contrast Load (mL) 327.8 End Study - Radiation Exposure Fluoro Time (minutes) 2.6 End Study - Patient Disposition Complications Transferred To Interventional Outcome No Telemetry Bed successful 01/09/2018 11:15:41 AM Financial #: [id number] 9 of 9
[2018-01-09] MEDS ORDERED: BACITRACIN OINT 0.9 GM PKT TOP PRN (11:30)
[2018-01-09] MEDS ORDERED: traMADol HCL 50 MG TAB PO PRN (12:00)
[2018-01-09] MEDS ORDERED: PROPOFOL 200 MG/20 ML AMP IV ONE (12:00)
[2018-01-09] MEDS ORDERED: LIDOCAINE HCL 1% PF 5 ML SYRINGE OTHER ONE (12:00)
[2018-01-09] MEDS ORDERED: ePHEDrine/NS 25 MG/5 ML SYRINGE IV ONE (12:00)
[2018-01-09] MEDS ORDERED: DEXAMETHASONE SOD PHOS 4 MG/ML VIAL IV ONE (12:00)
--- NOTE | 2018-01-09 13:19 | RADRPT ---
EXAM DATE/TIME: 01/09/2018 12:29 [place] COMPARISON: CT PULMONARY ANGIOGRAM, September 16, 2017, 1:27. MYOCARDIAL PERF PHARM SPECT, GATED W/EF, September 17, 2017, 9:07. CHEST SINGLE AP, January 08, 2018, 18:18. INDICATIONS : Evaluate for pneumonia. MEDICAL HISTORY : Alzheimer's cardiovascular disease hypertension. SURGICAL HISTORY : Hysterectomy. Pacemaker. ENCOUNTER: Initial ACUITY: 1 day PAIN SCORE: 5/10 LOCATION: Bilateral chest FINDINGS: Stable dual-lead pacemaker. There is improved aeration in the right lower lung zone. There are no new focal pleural or parenchymal opacities. Cardiomediastinal contours are within normal limits. Remaind er of exam is unchanged. CONCLUSION: 1. Improved aeration in the right lower lung zone. Raúl Anderson MD on January 09, 2018 at 13:16 Board Certified Radiologist. This report was verified electronically.
--- NOTE | 2018-01-09 15:24 | HHI.PR ---
Subjective Remarks Patient seen this afternoon after cardiac procedure. Says she feels all right. Denies any chest pain or shortness of breath. Denies any nausea or vomiting. Objective Vital Signs Date Time Temp Pulse Resp B/P (MAP) Pulse Ox O2 Delivery O2 Flow Rate FiO2 01/09/18 11:36 94 Room Air 01/09/18 08:45 98.5 50 20 128/64 (85) 98 01/09/18 08:00 50 01/09/18 04:31 97.9 56 20 148/69 (95) 96 01/09/18 04:02 48 01/09/18 03:38 51 01/08/18 23:32 64 01/08/18 22:27 98.7 67 20 183/83 (116) 96 184/94 (124) 187/89 (121) 01/08/18 22:01 01/08/18 19:14 (102) 01/08/18 19:12 58 16 162/72 (102) 98 Room Air 01/08/18 19:11 60 17 178/76 (110) 97 Room Air 01/08/18 19:10 97 Room Air 01/08/18 19:10 17 97 Room Air 01/08/18 16:36 98.0 54 18 135/62 (86) 97 I/O 01/08/18 01/08/18 01/08/18 01/09/18 01/09/18 01/09/18 07:00 15:00 23:00 07:00 15:00 23:00 Intake Total 250 ml Balance 250 ml Intake IV Total 250 ml # Voids 1 # Bowel Movements 0 Result Diagram: 01/09/18 0535 01/09/18 0535 Objective Remarks GENERAL: Patient sitting up in bed. Appears comfortable. SKIN: Warm and dry. HEAD: Normocephalic. EYES: No scleral icterus. No injection or drainage. NECK: Supple, trachea midline. No JVD. CARDIOVASCULAR: Regular rate and rhythm without murmurs, gallops, or rubs. Left upper chest dressed. clean dry and intact. RESPIRATORY: Breath sounds equal bilaterally. No accessory muscle use. GASTROINTESTINAL: Abdomen soft, non-tender, nondistended. MUSCULOSKELETAL: No cyanosis, or edema. BACK: Nontender without obvious deformity. No CVA tenderness. A/P Assessment and Plan 87-year-old female with a history of hypertension, CAD, hypothyroid, hyperlipidemia and Alzheimer's disease was brought into the ED from her SNF after suffering a fall. //Near syncope, with dizziness, and result patient falls -Orthostatic vital signs ordered -FABIEN reynoso ordered -PT eval and treat -US carotids ordered -Echo completed in August 2017 showed aortic stenosis with mild regurgitation, EF 65-70%, systolic function normal = Continue to monitor on telemetry. Appreciate cardiology assistance. Case management working on discharge to SNF/rehab. //Elevated troponin, troponin 0.07, patient's baseline from prior visits, will rule out ACS //EKG reviewed and shows sinus rhythm -Serial troponin and EKGs -Monitor telemetry -Resumed home Plavix //Hypertension, chronic -Reorder home medications, monitor vitals //Alzheimer's, chronic -Resumed home medications //DVT prophylaxis: Heparin SQ Discharge Planning Pending cardiology clearance. Case management working on SNF/rehab. Stu Sherwood MD Jan 09, 2018 15:24
[2018-01-09] MEDS: SODIUM CHLOR 0.9% 1000 ML INJ 1,000 ML IV SCH (19:00)
--- NOTE | 2018-01-09 23:57 | EKG ---
Date Performed: 01/09/2018 Time Performed: 04:39:47 PTAGE: 87 years EKG: Sinus rhythm WITH SINUS ARRHYTHMIA WITH FIRST DEGREE AV BLOCK PROLONGED QT INTERVAL ABNORMAL ECG PREVIOUS TRACING : 01/08/2018 23.31 Since the prior tracing, there has been no significant elliott DOCTOR: Ingrid Nelson Interpretating Date/Time 01/09/2018 23:56:43
[2018-01-10] VITALS (25 sets, daily range): BP systolic 116–150; BP diastolic 55–82; PULSE 50–70; RESP 15–17; TEMP 98.3–98.8; O2SAT 94–98
--- NOTE | 2018-01-10 00:06 | EKG ---
Date Performed: 01/08/2018 Time Performed: 23:31:45 PTAGE: 87 years EKG: Sinus rhythm WITH FIRST DEGREE AV BLOCK ABNORMAL ECG PREVIOUS TRACING : 01/08/2018 19.22 Since the prior tracing, there has been no significant elliott DOCTOR: Ingrid Nelson Interpretating Date/Time 01/10/2018 00:04:46
--- NOTE | 2018-01-10 00:33 | EKG ---
Date Performed: 01/08/2018 Time Performed: 19:22:37 PTAGE: 87 years EKG: SINUS BRADYCARDIA WITH SINUS ARRHYTHMIA WITH FIRST DEGREE AV BLOCK ABNORMAL ECG PREVIOUS TRACING : 09/16/2017 13.46 Since the prior tracing, there has been no significant elliott DOCTOR: Ingrid Nelson Interpretating Date/Time 01/10/2018 00:32:11
--- NOTE | 2018-01-10 01:56 | EKG ---
Date Performed: 01/09/2018 Time Performed: 11:58:12 PTAGE: 87 years EKG: Regular supraventricular rhythm. Prolonged QT interval Poor R wave progression - probable n ormal variant Septal T wave changes are nonspecific Borderline ECG PREVIOUS TRACING : 01/09/2018 04.39 DOCTOR: Ingrid Nelson Interpretating Date/Time 01/10/2018 01:54:29
[2018-01-10] MEDS: SODIUM CHLOR 0.9% 1000 ML INJ 1,000 ML IV SCH ×3 (04:36→22:55)
[2018-01-10] MEDS: LEVOTHYROXINE SODIUM 50 MCG TAB PO SCH (04:55)
[2018-01-10] MEDS: SODIUM CHLORIDE 0.9% FLUSH 10 ML FLUSH IV FLUSH SCH ×2 (09:00→21:00)
[2018-01-10] MEDS: HEPARIN SODIUM - SQ 10,000 UNITS/ML VIAL SQ SCH ×2 (09:00→21:03)
--- NOTE | 2018-01-10 09:21 | PD.CARD.PN ---
Subjective Subjective Remarks no complaints, feels fine Objective Medications Current Medications Medications (Trade) Dose Ordered Sig/Shweta Route Start Time Stop Time Status Last Admin (NS Flush) 2 ml UNSCH PRN IV FLUSH 01/08/18 20:45 (NS Flush) 2 ml BID IV FLUSH 01/08/18 21:00 01/09/18 20:37 (Narcan Inj) 0.4 mg UNSCH PRN IV PUSH 01/08/18 20:45 (Heparin Inj) 5,000 units Q12HR SQ 01/08/18 22:30 01/09/18 20:59 (Norvasc) 5 mg DAILY PO 01/09/18 09:00 01/09/18 09:00 (Plavix) 75 mg DAILY PO 01/09/18 09:00 01/09/18 09:00 (Synthroid) 50 mcg DAILY@0600 PO 01/09/18 06:00 01/10/18 04:55 (Prinivil) 20 mg DAILY PO 01/09/18 09:00 01/09/18 09:00 (Pravachol) 40 mg DAILY PO 01/09/18 09:00 01/09/18 09:00 (Namenda) 10 mg DAILY PO 01/09/18 09:00 01/09/18 09:00 (risperDAL) 0.25 mg DAILY PO 01/09/18 09:00 Sodium Chloride 1,000 ml @ 100 mls/hr Q10H IV 01/09/18 09:00 Vancomycin HCl 1000 mg/Sodium Chloride 250 ml @ 250 mls/hr BELT WORKER IV 01/09/18 08:00 01/13/18 07:59 (Betadine 5% Antisepsis Kit) 1 applic BELT WORKER EACH NARE 01/09/18 08:00 01/13/18 07:59 (Bactroban Nasal 2% Oint) 1 applic BELT WORKER NASAL 01/09/18 08:00 01/13/18 07:59 (Chlorhexidine 2% Cloth) 3 pack BELT WORKER TOP 01/09/18 08:00 01/13/18 07:59 (Ultram) 25 mg Q4H PRN PO 01/09/18 12:00 01/10/18 04:58 (Bacitracin Oint Packet) 0.9 gm UNSCH PRN TOP 01/09/18 11:30 Vital Signs / I&O Vital Signs Date Time Temp Pulse Resp B/P (MAP) Pulse Ox O2 Delivery O2 Flow Rate FiO2 01/10/18 07:00 98.8 64 16 141/77 (98) 94 01/10/18 06:12 59 01/10/18 05:27 61 01/10/18 05:18 98.4 61 150/68 (95) 94 01/10/18 03:00 59 01/10/18 02:00 60 01/10/18 01:00 60 01/10/18 00:41 98.5 60 146/73 (97) 94 01/10/18 00:00 62 01/09/18 23:00 60 01/09/18 22:00 60 01/09/18 21:00 66 01/09/18 20:00 66 01/09/18 19:00 77 01/09/18 19:00 98.3 63 132/74 (93) 97 01/09/18 18:20 60 01/09/18 18:20 62 16 136/73 (94) 96 01/09/18 11:36 94 Room Air I/O 01/09/18 01/09/18 01/09/18 01/10/18 01/10/18 01/10/18 07:00 15:00 23:00 07:00 15:00 23:00 Intake Total 250 ml 240 ml 240 ml Output Total 200 ml 350 ml Balance 250 ml 40 ml -110 ml Intake Oral 240 ml 240 ml IV Total 250 ml Output Urine Total 200 ml 350 ml # Voids 1 1 # Bowel Movements 0 Physical Exam alert chest clear Pacer wound looks perfect CV S1S2 RRR CXR good Pacer check good no edema Assessment and Plan Problem List: (1) CAD (coronary artery disease) ICD Codes: I25.10 - Atherosclerotic heart disease of [place] coronary artery without angina pectoris Plan: stable, no angina, Increased trop but curve flat/ doubt ACS (2) Pacemaker ICD Codes: Z95.0 - Presence of cardiac pacemaker Plan: Working fine (3) Bradycardia ICD Codes: R00.1 - Bradycardia, unspecified Plan: resolved with pacer Assessment and Plan OK to [facility] Buzz Lara MD Jan 10, 2018 09:21
[2018-01-10] MEDS: CLOPIDOGREL 75 MG TAB PO SCH (09:26)
[2018-01-10] MEDS: PRAVASTATIN SOD 40 MG TAB PO SCH (09:26)
[2018-01-10] MEDS: amLODIPine BESYLATE 5 MG TAB PO SCH (09:26)
[2018-01-10] MEDS: LISINOPRIL 20 MG TAB PO SCH (09:26)
[2018-01-10] MEDS: MEMANTINE HCL 10 MG TAB PO SCH (09:26)
[2018-01-10] MEDS: risperiDONE 0.25 MG TAB PO SCH (14:03)
--- NOTE | 2018-01-10 14:49 | EKG ---
Date Performed: 01/10/2018 Time Performed: 05:18:46 PTAGE: 87 years EKG: Atrial pacing Abnormal ECG Since PREVIOUS TRACING , no significant change noted PREVIOUS TRACIN01/09/2018 11.58 DOCTOR: Gurinder Zaman Interpretating Date/Time 01/10/2018 14:48:07
--- NOTE | 2018-01-10 16:48 | HHI.PR ---
Subjective Remarks Patient is well no fever no chills No chest pain lightheaded or dizziness status post pacer insertion Objective Vitals Vital Signs Date Time Temp Pulse Resp B/P (MAP) Pulse Ox O2 Delivery O2 Flow Rate FiO2 01/10/18 15:00 98.8 64 15 116/55 (75) 96 01/10/18 14:00 60 01/10/18 13:00 64 01/10/18 12:00 60 01/10/18 11:00 50 01/10/18 11:00 98.3 64 17 130/69 (89) 130/69 (89) 01/10/18 10:00 60 01/10/18 09:00 60 01/10/18 08:00 52 01/10/18 07:00 98.8 64 16 141/77 (98) 94 01/10/18 07:00 50 01/10/18 06:12 59 01/10/18 05:27 61 01/10/18 05:18 98.4 61 150/68 (95) 94 01/10/18 03:00 59 01/10/18 02:00 60 01/10/18 01:00 60 01/10/18 00:41 98.5 60 146/73 (97) 94 01/10/18 00:00 62 01/09/18 23:00 60 01/09/18 22:00 60 01/09/18 21:00 66 01/09/18 20:00 66 01/09/18 19:00 77 01/09/18 19:00 98.3 63 132/74 (93) 97 01/09/18 18:20 60 01/09/18 18:20 62 16 136/73 (94) 96 I/O 01/09/18 01/09/18 01/09/18 01/10/18 01/10/18 01/10/18 07:00 15:00 23:00 07:00 15:00 23:00 Intake Total 250 ml 240 ml 240 ml Output Total 200 ml 350 ml Balance 250 ml 40 ml -110 ml Intake Oral 240 ml 240 ml IV Total 250 ml Output Urine Total 200 ml 350 ml # Voids 1 1 # Bowel Movements 0 Result Diagram: 01/09/18 0535 01/09/18 0535 Objective Remarks GENERAL: This is a well-nourished, well-developed patient, in no apparent distress. SKIN: No rashes, warm and dry HEAD: Atraumatic. Normocephalic. EYES: Pupils equal round and reactive. Extraocular motions intact. No scleral icterus. ENT: Nose without bleeding, or drainage, Airway patent. NECK: Trachea midline. Supple CARDIOVASCULAR: Regular rate and rhythm without murmurs, gallops, or rubs. RESPIRATORY: Fair air entry bilaterally. No wheezes, rales, or rhonchi. GASTROINTESTINAL: Abdomen soft, non-tender, nondistended. Positive bowel sounds MUSCULOSKELETAL: Extremities without clubbing, cyanosis, or edema. Pedal pulses appreciated, left shoulder and upper chest dressing NEUROLOGICAL: Awake and alert. Moves all extremity. Normal speech.no focal neurological deficit A/P Problem List: (1) Dizziness ICD Code: R42 - Dizziness and giddiness (2) Near syncope ICD Code: R55 - Syncope and collapse (3) Elevated troponin ICD Code: R74.8 - Abnormal levels of other serum enzymes Status: Acute Assessment and Plan 01/10 status post pacer insertion doing well, continue monitoring telemetric discharge when cleared by by biofuels manager 87-year-old female with a history of hypertension, CAD, hypothyroid, hyperlipidemia and Alzheimer's disease was brought into the ED from her [facility] after suffering a fall. //Near syncope, with dizziness, and result patient falls -Orthostatic vital signs ordered -FABIEN hose ordered -PT eval and treat -US carotids ordered -Echo completed in August 2017 showed aortic stenosis with mild regurgitation, EF 65-70%, systolic function normal = Continue to monitor on telemetry. Appreciate cardiology assistance. Case management working on discharge to SNF/rehab. //Elevated troponin, troponin 0.07, patient's baseline from prior visits, will rule out ACS //EKG reviewed and shows sinus rhythm -Serial troponin and EKGs -Monitor telemetry -Resumed home Plavix //Hypertension, chronic -Reorder home medications, monitor vitals //Alzheimer's, chronic -Resumed home medications //DVT prophylaxis: Heparin SQ Discharge Planning Pending cardiology clearance. Case management working on SNF/rehab. Ryann Chauhan MD Jan 10, 2018 16:48
[2018-01-11] VITALS (17 sets, daily range): BP systolic 129–154; BP diastolic 75–87; PULSE 60–86; RESP 16; TEMP 97.8–98.7; O2SAT 91–98
[2018-01-11] MEDS: LEVOTHYROXINE SODIUM 50 MCG TAB PO SCH (05:28)
--- NOTE | 2018-01-11 07:32 | MP ---
cc: RAMA GARCIA M.D. DATE OF SURGERY: 01/09/2018 PREOPERATIVE DIAGNOSIS: Symptomatic bradycardia POSTOPERATIVE DIAGNOSIS: Symptomatic bradycardia PROCEDURE: Insertion of dual chamber rate response pacemaker via the left subclavian vein. DESCRIPTION OF PROCEDURE Informed consent was obtained from talking to the patient's son. Sedation was provided by anesthesia. The patient was prepped and draped in sterile fashion. Using 1% lidocaine for local anesthesia an incision was made parallel to and below the left clavicle. Using blunt and sharp dissection a pocket was fashioned above the pectoralis muscle. The left subclavian vein was then punctured twice with two guidewires placed into the SVC. Over the first guidewire, a 7-Urdu peel-away sheath was introduced. Through this the ventricular lead was inserted using appropriate stylets was screwed into the right ventricle near the apex. The peel-away sheath was removed. Over the second guidewire a 7-Urdu peel-away sheath was introduced and through this the atrial lead was inserted and screwed into the right atrial appendage. There were good sensing and pacing thresholds in both leads. The peel-away sheath was then removed. Both leads were secured to the floor of the pocket using three 2-0 silk sutures. The wound was then irrigated with antibiotic solution. The leads were then connected to the pacemaker generator which was positioned on the floor of the pocket with the leads coiled behind it. Both leads also were tested at 10 volts with no diaphragmatic pacing. The generator was secured to the floor of the pocket using a single 2-0 silk suture. The wound was then carefully closed in layers using three interrupted 2-0 Vicryl sutures for the deep fascial layers, six 3-0 Vicryl subcutaneous sutures and then a running 4-0 Monocryl stitch to close the skin subcuticularly. The wound looked excellent at the end of the case. Steri-Strips and 4x4 dressing was then applied. The atrial lead is a Medtronic model 4076, length 45-cm, serial number [id number], with a P-wave of 2.2 mV, slew of 3.7 volts per seconds, resistance 636 ohms, threshold 1.6 volts and a current of 3.6 mA. The ventricular lead is a Medtronic 4076, length 52-cm, serial number [id number] with an R-rate of 14.3 mV, slew of 2.5 volts per second, impedance of 1048 ohms, threshold of 1.5 volts. The pacemaker is a Medtronic model ADD RS1 Adapta S, serial number [id number]. Pacemaker is programmed AART at a rate 60 to 130, paced AV delay 150, sensed AV delay 120. A portable chest x-ray will be ordered. Anticipate discharge tomorrow if stable. MD KENDRA Paul/HILTON /11:16 AM /7:05 AM
[2018-01-11] MEDS: HEPARIN SODIUM - SQ 10,000 UNITS/ML VIAL SQ SCH (09:00)
[2018-01-11] MEDS: PRAVASTATIN SOD 40 MG TAB PO SCH (09:34)
[2018-01-11] MEDS: SODIUM CHLORIDE 0.9% FLUSH 10 ML FLUSH IV FLUSH SCH (09:34)
[2018-01-11] MEDS: LISINOPRIL 20 MG TAB PO SCH (09:34)
[2018-01-11] MEDS: MEMANTINE HCL 10 MG TAB PO SCH (09:34)
[2018-01-11] MEDS: amLODIPine BESYLATE 5 MG TAB PO SCH (09:34)
[2018-01-11] MEDS: risperiDONE 0.25 MG TAB PO SCH (09:34)
[2018-01-11] MEDS: CLOPIDOGREL 75 MG TAB PO SCH (09:34)
[2018-01-11] MEDS: SODIUM CHLOR 0.9% 1000 ML INJ 1,000 ML IV SCH (11:00)
--- NOTE | 2018-01-13 16:52 | HHI.DS ---
Discharge Summary Admission Date Jan 08, 2018 at 20:38 Discharge Date: Jan 11, 2018 Admitting Diagnosis ? Syncope; elevated troponin (1) Dizziness ICD Code: R42 - Dizziness and giddiness (2) Near syncope ICD Code: R55 - Syncope and collapse (3) Elevated troponin ICD Code: R74.8 - Abnormal levels of other serum enzymes Status: Acute Procedures Pacer insertion Brief History - From Admission 87-year-old female with a history of hypertension, hypothyroid, CAD, hyperlipidemia and Alzheimer's disease was brought into the ED from her NURSING HOME after suffering a fall. Due to patient's history of Alzheimer's ROS is limited and patient only remembers certain things about her medical conditions. Records were sent from her [facility] and reviewed. Patient states she has been falling a lot, she states when she gets up she becomes dizzy and falls. She is unsure if she has any loss of consciousness, but denies hitting her head. She denies any pain, no chest pain or shortness of breath. Upon evaluation in the emergency room patient was found to have an elevated troponin 0.07, patient does deny any chest pain. CBC/BMP: 01/09/18 0535 01/09/18 0535 PE at Discharge GENERAL: This is a well-nourished, well-developed patient, in no apparent distress. SKIN: No rashes, warm and dry HEAD: Atraumatic. Normocephalic. EYES: Pupils equal round and reactive. Extraocular motions intact. No scleral icterus. ENT: Nose without bleeding, or drainage, Airway patent. NECK: Trachea midline. Supple CARDIOVASCULAR: Regular rate and rhythm without murmurs, gallops, or rubs. RESPIRATORY: Fair air entry bilaterally. No wheezes, rales, or rhonchi. GASTROINTESTINAL: Abdomen soft, non-tender, nondistended. Positive bowel sounds MUSCULOSKELETAL: Extremities without clubbing, cyanosis, or edema. Pedal pulses appreciated, left shoulder and upper chest dressing NEUROLOGICAL: Awake and alert. Moves all extremity. Normal speech.no focal neurological deficit Hospital Course 87 years old female with history of hypertension or syncope with dizziness and fall cardiology consult ultrasound to be drawn patient had pacemaker inserted, improved after that, she was also managed for hypertension chronic, also she had a history of Alzheimer's, patient cleared by cardiology to be discharged to follow-up as an outpatient Pt Condition on Discharge: Fair Discharge Disposition: Discharge to SNF Discharge Time: <= 30 minutes Discharge Instructions DIET: Follow Instructions for: Heart Healthy Diet Activities you can perform: See Additionl Instruction Other Activity Instructions: per pt Continued Medications: Acetaminophen (Mapap) 325 Mg Tab 650 MG PO Q4-6H PRN for PAIN SCALE 1 TO 5, TAB 0 Refills Albuterol 8.5 GM Inh (Proair Hfa 8.5 GM Inh) 90 Mcg/Act Aer 2 PUFF INH Q4-6H PRN for SHORTNESS OF BREATH, #1 INHALER 0 Refills 108 mcg/actuation Amlodipine (Amlodipine) 5 Mg Tab 5 MG PO DAILY for Blood Pressure Management, #30 TAB 0 Refills Clopidogrel (Plavix) 75 Mg Tab 75 MG PO DAILY for Blood Clot Prevention, #30 TAB 0 Refills Cyanocobalamin (Vitamin B-12) 1,000 Mcg Tab 500 MCG PO DAILY for Nutritional Supplement, #1 BOTTLE 0 Refills Galantamine (Galantamine) 4 Mg Tab 4 MG PO ONCE for Alzheimer's Dementia, #60 TAB 0 Refills Levothyroxine (Levothyroxine) 50 Mcg Tab 50 MCG PO DAILY for Thyroid, #30 TAB 0 Refills Lisinopril (Lisinopril) 20 Mg Tab 20 MG PO DAILY, #30 TAB 0 Refills Lovastatin (Lovastatin) 40 Mg Tab 40 MG PO DAILY for Cholesterol Management, #30 TAB 0 Refills Memantine (Namenda) 10 Mg Tab 10 MG PO DAILY for Alzheimer Disease, #30 TAB 0 Refills Promethazine (Phenergan) 25 Mg Tablet 25 MG PO Q6H PRN for NAUSEA OR VOMITING, TAB 0 Refills Risperidone (Risperidone) 0.25 Mg Tab 0.25 MG PO DAILY, #30 TAB 0 Refills Ryann Chauhan MD Jan 13, 2018 16:52
== END 2018-01-11 17:36 ==
LOC: NEPC 16:10 → NEDA 20:38 → NEPGCP 22:00 → HCIS 01-09 10:53
PROVIDERS: ADMIT Hospitalist; ATTEND Hospitalist
DX: I44.2 Atrioventricular block, complete (principal); R00.1 Bradycardia, unspecified; R42 Dizziness and giddiness; R74.8 Abnormal levels of other serum enzymes; R60.0 Localized edema; S40.811A Abrasion of right upper arm, initial encounter; M25.521 Pain in right elbow; R94.31 Abnormal electrocardiogram [ECG] [EKG]; I45.81 Long QT syndrome; I25.10 Atherosclerotic heart disease of native coronary artery without angina pectoris; I10 Essential (primary) hypertension; I35.0 Nonrheumatic aortic (valve) stenosis; E78.00 Pure hypercholesterolemia, unspecified; E03.9 Hypothyroidism, unspecified; I25.2 Old myocardial infarction; K21.9 Gastro-esophageal reflux disease without esophagitis; G30.9 Alzheimer's disease, unspecified; F02.80 Dementia in other diseases classified elsewhere, unspecified severity, without behavioral disturbance, psychotic disturbance, mood disturbance, and anxiety; R29.6 Repeated falls; M19.90 Unspecified osteoarthritis, unspecified site; Z79.01 Long term (current) use of anticoagulants; Z79.899 Other long term (current) drug therapy; W19.XXXA Unspecified fall, initial encounter; Z95.0 Presence of cardiac pacemaker; Z91.81 History of falling; Z82.49 Family history of ischemic heart disease and other diseases of the circulatory system
CPT/HCPCS: 00530; 33208; 70450; 71045; 73080; 80048; 80053; 81001; 82550; 83735; 84484; 85025; 85610; 85730; 93005; 93880; 96372; 97116; 97162; 99285; C1785; C1898; G0378; G8987; G8988; J0690; J1100; J1644; J3010; J3370; J7050

== ENCOUNTER 2018-02-07 23:31 | Emergency (ER) | payer OTHER ==
[~2018-02-07] VITALS: Ht 170.2 cm; Wt 61.0 kg
[~2018-02-07 23:31] MED LIST changes: +LOPE2CAP PO; +MAPA325T PO; +PROM25TA10 PO; +SENE8.6T PO
--- NOTE | 2018-02-08 00:05 | PD ---
HPI Chief Complaint: Fall Time Seen by Provider: 23:58 Travel History International Travel<30 days: No Contact w/Intl Traveler<30days: No Traveled to known affect area: No History of Present Illness HPI 87-year-old female presents to the emergency department from local nursing facility for evaluation of injury status post fall. Patient complains of right elbow pain and right knee pain. Patient is a resident of a dementia unit with also history of hypertension dyslipidemia hypothyroidism and CAD. Patient denies hitting her head or having loss of consciousness. Patient denies neck pain back pain chest pain rib pain shortness of breath abdominal pain. Patient does not know her medications and does not know if she had loss of consciousness but denies loss of consciousness. According to nursing facility report the fall was not witnessed however the patient was heard to fall and immediately staff attended to the patient. No reported loss of consciousness. Patient presents by EMS transport [facility] Past Medical History Narrative Medical Plavix therapy, CAD, hypothyroidism, hypertension, dyslipidemia, Alzheimer's; no tobacco use; nursing notes reviewed Hx Anticoagulant Therapy: Yes Alzheimer's Disease: Yes Arthritis: Yes Blood Disorders: No Heart Rhythm Problems: No Cancer: No Cardiovascular Problems: Yes High Cholesterol: Yes Chemotherapy: No Chest Pain: Yes Congestive Heart Failure: No Cerebrovascular Accident: No Diabetes: No Diminished Hearing: No Endocrine: No Gastrointestinal Disorders: Yes (SPASTIC COLON) GERD: Yes Genitourinary: No Headaches: Yes Hypertension: Yes Immune Disorder: No Implanted Vascular Access Dvce: No Musculoskeletal: Yes (ARTHRITIS) Neurologic: Yes (ALZHEIMER'S) Psychiatric: No Reproductive: No Respiratory: No Immunizations Current: Yes Migraines: No Myocardial Infarction: Yes (2007) Radiation Therapy: No Seizures: No Thyroid Disease: No Menopausal: Yes Past Surgical History Cholecystectomy: Yes Hysterectomy: Yes Thoracic Surgery: Yes (2 LB TUMOR REMOVED FROM UNDER RIGHT BREAST TO UP AROUND SHOULDER) Other Surgery: Yes Social History Alcohol Use: No Tobacco Use: No Substance Use: No Allergies-Medications (Allergen,Severity, Reaction): Coded Allergies: Sulfa (Sulfonamide Antibiotics) (Verified Allergy, Severe, UNKNOWN, ) lactose (Verified Allergy, Severe, Diarrhea, 02/08/18) penicillin G (Verified Allergy, Severe, UNKNOWN, 02/08/18) tetanus toxoid, adsorbed (Verified Allergy, Severe, Rash, 02/08/18) Reported Meds & Prescriptions Reported Meds & Active Scripts Active Reported Vitamin B-12 (Cyanocobalamin) 1,000 Mcg Tab 500 Mcg PO DAILY Senexon-S 8.6-50 mg (Sennosides-Docusate Sodium) 8.6 Mg-50 Mg Tab 1 Tab PO DAILY Phenergan (Promethazine HCl) 25 Mg Tablet 25 Mg PO Q6H PRN Mapap (Acetaminophen) 325 Mg Tab 650 Mg PO Q4-6H PRN Loperamide (Loperamide HCl) 2 Mg Cap 2 Mg PO Q6HR PRN One capsule after each loose stool. Not to exceed 8 capsules per day. Risperidone 0.25 Mg Tab 0.25 Mg PO DAILY Proair Hfa 8.5 GM Inh (Albuterol Sulfate) 90 Mcg/Act Aer 2 Puff INH Q4-6H PRN 108 mcg/actuation Plavix (Clopidogrel Bisulfate) 75 Mg Tab 75 Mg PO DAILY Namenda (Memantine) 10 Mg Tab 10 Mg PO DAILY Lovastatin 40 Mg Tab 40 Mg PO DAILY Lisinopril 20 Mg Tab 20 Mg PO DAILY Levothyroxine (Levothyroxine Sodium) 50 Mcg Tab 50 Mcg PO DAILY Galantamine (Galantamine Hydrobromide) 4 Mg Tab 4 Mg PO ONCE Amlodipine (Amlodipine Besylate) 5 Mg Tab 5 Mg PO DAILY Review of Systems Except as stated in HPI: all other systems reviewed are Neg General / Constitutional: No: Fever Eyes: No: Visual changes HENT: No: Headaches, Neck Pain Cardiovascular: No: Chest Pain or Discomfort Respiratory: No: Shortness of Breath Gastrointestinal: No: Vomiting, Abdominal Pain Genitourinary: No: Flank Pain Musculoskeletal: Positive: Pain (right elbow, right knee), No: Myalgias, Arthralgias Skin: No Rash Neurologic: No: Weakness Hematologic/Lymphatic: No: Easy Bruising Physical Exam Narrative GENERAL: Well-developed elderly female in no acute distress no respiratory distress GCS 14 to 15 SKIN: Warm and dry. HEAD: Atraumatic. Normocephalic. No scalp soft tissue swelling no abrasion no laceration no bony abnormality. EYES: Pupils equal and round. Extraocular muscles intact. No scleral icterus. No injection or drainage. ENT: No nasal bleeding or discharge. Mucous membranes pink and moist. NECK: Trachea midline. No JVD. No midline tenderness to direct palpation along the cervical spine no bony step-off. CARDIOVASCULAR: Regular rate and rhythm. Chest wall: Ribs nontender no abrasion no bony step-off. RESPIRATORY: No accessory muscle use. Clear to auscultation. Breath sounds equal bilaterally. GASTROINTESTINAL: Abdomen soft, non-tender, nondistended. Hepatic and splenic margins not palpable. MUSCULOSKELETAL: Extremities without clubbing, cyanosis, or edema. No obvious deformities. Pelvic rock stable. Patient has abrasion to the right elbow without soft tissue swelling or deformity distal extremities neurovascular tendon intact. Patient has bruising to the right knee without abrasion no soft tissue swelling no effusion distally extremities neurovascular tendon intact. NEUROLOGICAL: Awake and alert. No obvious cranial nerve deficits. Motor grossly within normal limits. Five out of 5 muscle strength in the arms and legs. Normal speech. PSYCHIATRIC: Appropriate mood and affect; insight and judgment normal. Data Data Last Documented VS Vital Signs Date Time Temp Pulse Resp B/P (MAP) Pulse Ox O2 Delivery O2 Flow Rate FiO2 02/08/18 00:22 98.0 97 18 113/56 (75) 96 02/08/18 00:15 Room Air Orders Orders Elbow, Complete (4 Vws) (02/07/18 ) Knee, Complete (4vws) (02/07/18 ) Ice/Cold Pack (02/07/18 23:58) Ct Brain W/O Iv Contrast(Rout) (02/07/18 ) Wound Care (02/08/18 01:16) MDM Medical Decision Making Medical Screen Exam Complete: Yes Emergency Medical Condition: Yes Medical Record Reviewed: Yes Interpretation(s) CT brain noncontrast per reading radiologist: CONCLUSION: 1. Small cephalhematoma over the left frontoparietal region with no acute fracture or intracranial trauma. 2. Otherwise stable with mild ventricular prominence, moderately severe periventricular small vessel ischemic demyelination and possible old punctate lacunar type infarct in the left basal ganglia. Suleman Ramos MD on February 08, 2018 at 0:54 Board Certified Radiologist. This report was verified electronically. X-ray right elbow: No acute bony abnormality per reading radiologist X-ray right knee: No acute bony abnormality per reading radiologist Vital Signs Date Time Temp Pulse Resp B/P (MAP) Pulse Ox O2 Delivery O2 Flow Rate FiO2 02/08/18 00:22 98.0 97 18 113/56 (75) 96 02/08/18 00:15 86 18 97 Room Air Differential Diagnosis Mechanical fall, minor closed head injury, elbow contusion sprain strain fracture abrasion, knee contusion sprain strain fracture abrasion Narrative Course Imaging studies ordered ice pack applied Diagnosis Primary Impression: Minor closed head injury Additional Impressions: Forehead contusion Qualified Codes: S00.83XA - Contusion of other part of head, initial encounter Contusion of elbow, right Qualified Codes: S50.01XA - Contusion of right elbow, initial encounter Knee contusion Qualified Codes: S80.01XA - Contusion of right knee, initial encounter Referrals: Primary Care Physician 2 days Patient Instructions: General Instructions Additional Instructions: Follow head injury precautions 24 hours Keep elbow abrasion clean and dry May use ice intermittently to forehead, right elbow, right knee intermittently for soft tissue swelling May administer as tolerated acetaminophen/Tylenol every 4-6 hours as needed for fever 100.4F or greater and/or for minor pain Return to the emergency department for any concerns or change in condition Recommend primary care provider follow-up at 2 days Disposition: 01 DISCHARGE HOME Condition: Stable Amaris Carlin MD Feb 08, 2018 00:04
[2018-02-08 00:22] VITALS: BP 113/56; PULSE 97; RESP 18; TEMP 98; O2SAT 96
--- NOTE | 2018-02-08 00:57 | RADRPT ---
EXAM DATE/TIME: 02/08/2018 00:11 [facility] COMPARISON: CT BRAIN W/O CONTRAST, January 08, 2018, 18:58. INDICATIONS : Trauma. Fall. RADIATION DOSE: 57.74 CTDIvol (mGy) MEDICAL HISTORY : Cardiovascular disease. Alzheimer's. SURGICAL HISTORY : None. ENCOUNTER: Initial ACUITY: 1 day PAIN SCALE: 5/10 LOCATION: cranial TECHNIQUE: Multiple contiguous axial images were obtained of the head. Using automated exposure control and adj ustment of the mA and/or kV according to patient size, radiation dose was kept as low as reasonably a chievable to obtain optimal diagnostic quality images. DICOM format image data is available electro nically for review and comparison. FINDINGS: CEREBRUM: Ventricles are prominent but stable from prior exam. Periventricular diminished attenuation most prom inent around the frontal horns is also stable. Possible old lacunar type infarct in the left basal ga nglia. No evidence of midline shift, mass lesion, hemorrhage or acute infarction. No extra-axial fl uid collections are seen. POSTERIOR FOSSA: The cerebellum and brainstem are intact. The 4th ventricle is midline. The cerebellopontine angle i s unremarkable. EXTRACRANIAL: The visualized portion of the orbits is intact. SKULL: The calvaria is intact. No evidence of skull fracture. Small cephalhematoma over the left frontopari etal region. CONCLUSION: 1. Small cephalhematoma over the left frontoparietal region with no acute fracture or intracranial tr auma. 2. Otherwise stable with mild ventricular prominence, moderately severe periventricular small vessel ischemic demyelination and possible old punctate lacunar type infarct in the left basal ganglia. Suleman Ramos MD on February 08, 2018 at 0:54 Board Certified Radiologist. This report was verified electronically.
--- NOTE | 2018-02-08 00:59 | RADRPT ---
EXAM DATE/TIME: 02/08/2018 00:22 [facility] COMPARISON: ELBOW RIGHT COMPLETE (4 VWS), January 08, 2018, 18:22. INDICATIONS : Right elbow pain with abrasion post fall. MEDICAL HISTORY : Alzheimer's disease, cardiovascular disease, hypertension SURGICAL HISTORY : Hysterectomy. Pacemaker. ENCOUNTER: Initial ACUITY: 1 day PAIN SCORE: 6/10 LOCATION: Right upper extremity FINDINGS: Multiple view examination of the right elbow demonstrates no soft tissue swelling, joint effusion, or fracture. The osseous structures are in normal alignment. Bony mineralization is normal. CONCLUSION: No fracture or effusion. Suleman Ramos MD on February 08, 2018 at 0:56 Board Certified Radiologist. This report was verified electronically.
--- NOTE | 2018-02-08 00:59 | RADRPT ---
EXAM DATE/TIME: 02/08/2018 00:22 [facility] COMPARISON: KNEE RIGHT COMPLETE (4VWS), March 05, 2017, 7:19. INDICATIONS : Right knee pain with abrasion to the patella post fall. MEDICAL HISTORY : Alzheimer's disease, cardiovascular disease, hypertension SURGICAL HISTORY : Hysterectomy. Pacemaker. ENCOUNTER: Initial ACUITY: 1 day PAIN SCORE: 5/10 LOCATION: Right knee FINDINGS: Four view examination of the right knee demonstrates no evidence of fracture or dislocation. Bony mi neralization is normal. The articular surfaces are intact. The suprapatellar soft tissues have a no rmal configuration. CONCLUSION: Nothing acute. No effusion. Suleman Ramos MD on February 08, 2018 at 0:57 Board Certified Radiologist. This report was verified electronically.
== END 2018-02-08 01:42 | disposition home or self-care (01) ==
LOC: PHED 23:31
DX: S09.8XXA Other specified injuries of head, initial encounter (principal); S00.83XA Contusion of other part of head, initial encounter; S50.01XA Contusion of right elbow, initial encounter; S80.01XA Contusion of right knee, initial encounter; W19.XXXA Unspecified fall, initial encounter; Y92.129 Unspecified place in nursing home as the place of occurrence of the external cause; I10 Essential (primary) hypertension; E78.5 Hyperlipidemia, unspecified; E03.9 Hypothyroidism, unspecified; I25.10 Atherosclerotic heart disease of native coronary artery without angina pectoris; G30.9 Alzheimer's disease, unspecified; F02.80 Dementia in other diseases classified elsewhere, unspecified severity, without behavioral disturbance, psychotic disturbance, mood disturbance, and anxiety
CPT/HCPCS: 70450; 73080; 73564; 99284